=== PATIENT | female | born 1965 | race Caucasian/White ===

== ENCOUNTER → 2018-02-03 12:33 | Outpatient (CLI) | payer OTHER, SELFPAY ==
--- NOTE | 2018-02-03 12:37 | BI_ITS ---
MAMMOGRAPHY - BILATERAL SCREENING 3-D COSMO SYNTHESIS REASON FOR EXAM: Female, 52 years old. Bilateral Screening 3-D tomosynthesis PERTINENT HISTORY: No significant family history. TECHNIQUE: 2-D mammograms and 3-D Cosmo synthesis of the breast (s) were performed. CAD was performed. COMPARISON: January 28, 2017 FINDINGS: The breast composition is almost entirely fat. There are stable lymph nodes in both axillae. Scattered benign calcifications are seen. No dense spiculated masses or suspicious microcalcifications are identified. No architectural distortion is identified. There is no skin thickening or retraction. There has been no significant change since the prior study. BI/SCREENING MAMM (CAD), BILAT IMPRESSION: No mammographic signs of malignancy. Routine yearly mammograms recommended. ASSESSMENT CATEGORY: BIRADS Category 2: Benign. A letter regarding these results will be sent to the patient by the facility within 30 days. FOLLOW UP RECOMMENDATION: Yearly follow up mammogram recommended. (A) Approximately 10% of breast cancers are not detected by mammography. A normal mammogram should not delay biopsy of a clinically suspicious abnormality. Electronically Signed: Fernando Fontaine MD at 10:49 EST , Service support ,
== END ==
PROVIDERS: Family Provider Internal Medicine; PCP Internal Medicine; Visit Provider Nurse Practitioner Women's Health
DX: Z12.31 Encounter for screening mammogram for malignant neoplasm of breast (principal)
CPT/HCPCS: 77063; 77067

== ENCOUNTER → 2018-02-14 14:58 | Outpatient (CLI) | payer OTHER, SELFPAY ==
[2018-02-03 13:28] VITALS: BMI 27.6
[2018-02-14 16:32] LABS: Free T3 2.4 pg/mL (2.18-3.98); T4 Free Direct 0.97 ng/dL (0.76-1.46); Thyroid Stim Hormone (TSH) 0.93 uIU/mL (0.358-3.74)
== END ==
PROVIDERS: Family Provider Internal Medicine; PCP Internal Medicine; Referring Provider Nurse Practitioner; Visit Provider Nurse Practitioner
DX: E07.9 Disorder of thyroid, unspecified (principal)
CPT/HCPCS: 36415; 84439; 84443; 84481

== ENCOUNTER → 2018-02-21 14:44 | Outpatient (CLI) | payer OTHER, SELFPAY ==
[2018-02-21 13:55] VITALS: BMI 27.6
[2018-02-21 16:19] LABS: Vitamin B12 537 pg/mL (211-911)
[2018-02-24 09:52] LABS: Anti-Thyroglobulin AB < 1.0 IU/mL (0.0-0.9); Thyroglobulin, Serum Qt. < 0.1 ng/mL (1.5-38.5)
== END ==
PROVIDERS: Family Provider Internal Medicine; PCP Internal Medicine; Referring Provider Nurse Practitioner; Visit Provider Nurse Practitioner
DX: R53.81 Other malaise (principal); R53.82 Chronic fatigue, unspecified; Z85.850 Personal history of malignant neoplasm of thyroid
CPT/HCPCS: 36415; 82607; 84432; 86800

== ENCOUNTER → 2018-02-28 08:51 | Outpatient (CLI) | payer OTHER, SELFPAY ==
[2018-02-21 13:55] VITALS: BMI 27.6
--- NOTE | 2018-02-28 08:54 | US_ITS ---
HISTORY: Dysphagia HX OF THYROID CA AND BILAT THYROIDECTOMY 2010 DIFFICULTY SWALLOWING TECHNIQUE: Granados scale and color doppler imaging was performed of the thyroid gland. COMPARISON: 07/29/2016 FINDINGS: Bilateral thyroidectomy. The right thyroid bed shows a stable oval hypoechoic focus which is circumscribed and measures 7 x 6 x 8 mm. Diagnostic considerations would include a residual cyst, postsurgical lymphocele or seroma, or possibly parathyroid nodule. The pattern is stable. No new lesion. US/Thyroid IMPRESSION: 1. Bilateral thyroidectomy. No new lesion. 2. The right thyroid bed shows a stable cyst like structure. Please see above comment. at 0540 Reported and signed by: Johnny Leroy MD Electronically Signed: Johnny Leroy, at 5:38 EST Tel , Service support ,
--- OUTSIDE RECORDS SUMMARY | 2018-05-02 15:58 | XMS RPT_ITS ---
:1965 Author Organization OHIP Support Name Relationship Address Phone [facility] Unavailable [address] + [place] [address] MACY, ABIMAEL Unavailable [address] [facility] [address] [address] + [place] [address] MACY, KARLO Unavailable Unavailable + [place] [address] [facility] Unavailable [address] + [place] [address] MACY, ABIMAEL Unavailable [address] [facility] [address] [address] + [place] [address] MACY, KARLO Unavailable Unavailable + [place] [address] [facility] Unavailable [address] + [place] [address] MACY, ABIMAEL Unavailable [address] [facility] [address] [address] + [place] [address] MACY, KARLO Unavailable . + [place] [address] [facility] Unavailable [address] + [place] [address] MACY, ABIMAEL Unavailable [address] [facility] [address] [address] + [place] [address] MACY, KARLO Unavailable Unavailable + [place] [address] [facility] Unavailable [address] + [place] [address] MACY, ABIMAEL Unavailable [address] [facility] [address] + [place] [address] MACY, KARLO Unavailable [facility] + [place] [address] [facility] Unavailable [address] + [place] [address] MACY ABIMAEL Unavailable [address] [facility] [address] + [place] [address] KARLO TRUONG Unavailable [address] + [place] [address] [facility] Unavailable [address] + [place] [address] MACY ABIMAEL Unavailable [address] [facility] [address] + [place] [address] KARLO TRUONG Unavailable [address] + [place] [address] Care Team Providers Name Role Phone INDIA ROCK Attending Unavailable TALAMPAS, INDIA D Attending Unavailable TALAMPAS, INDIA D Referring Unavailable VANN FRANTZ Admitting Unavailable FRANTZ VANN Attending Unavailable TALAMPAS, INDIA D Referring Unavailable Cheri, Milton Attending Unavailable Talampas, India Primary Care Unavailable CheriMilton Attending Unavailable Talampas, India Referring Unavailable Shook, Tanesha Saldivar EMAIL MARKETING ASSISTANT-C Attending Unavailable Shook, Tanesha Saldivar EMAIL MARKETING ASSISTANT-C Referring Unavailable Talampas, India Primary Care Unavailable Shook, Tanesha Saldivar EMAIL MARKETING ASSISTANT-C Attending Unavailable Talampas, India Referring Unavailable Shook, Tanesha Saldivar EMAIL MARKETING ASSISTANT-C Attending Unavailable Shook, Tanesha Saldivar EMAIL MARKETING ASSISTANT-C Referring Unavailable Talampas, India Primary Care Unavailable Shook, Tanesha Saldivar EMAIL MARKETING ASSISTANT-C Attending Unavailable Shook, Tanesha Saldivar EMAIL MARKETING ASSISTANT-C Referring Unavailable Talampas, India Primary Care Unavailable Cheri, Milton Attending Unavailable Talampas, India Referring Unavailable Talampas, India Primary Care Unavailable PROBLEMS PROBLEMS DATE TYPE CONDITION / CODE ATTENDING STATUS SOURCE 03/03/2018 Unknown Z85.850 - Personal Tanesha Teixeira Active [place] history of malignant EMAIL MARKETING ASSISTANT-C Community neoplasm of thyroid Hospital / Z85.850(ICD-10) Repository 02/21/2018 Unknown R53.82 - Chronic Tanesha Teixeira Active [facility] fatigue, unspecified EMAIL MARKETING ASSISTANT-C Community / R53.82(ICD-10) Hospital Repository 02/21/2018 Unknown R53.81 - Other Tnaesha Teixeira Active [facility] malaise / EMAIL MARKETING ASSISTANT-C Community R53.81(ICD-10) Hospital Repository 01/03/2018 Active Encounter for VANN, Active [place] screening for FRANT[facility] Main malignant neoplasm [place] of colon / Repository Z12.11(ICD-10) 07/19/2013 Active Personal history of NA Active [place] malignant neoplasm Clinic Main of thyroid / [place] Z85.850(ICD-10) Repository 07/25/2012 Active Vitamin D NA Active [place] deficiency, Clinic Main unspecified / [place] E55.9(ICD-10) Repository 05/18/2012 Active Postprocedural NA Active [place] hypothyroidism / Clinic Main E89.0(ICD-10) [place] Repository 10/23/2017 Active Chronic fatigue, NA Active [place] unspecified / Clinic Main R53.82(ICD-10) [place] Repository 01/27/2017 Unknown Z12.11 - Encounter [place] Alonzo Active [facility] for screening for [facility] malignant neoplasm Hospital of colon / Repository Z12.11(ICD-10) 01/27/2017 Unknown Z01.419 - Encounter Milton Alonzo Active [facility] for gynecological [facility] examination [facility] (general) (routine) Repository without abnormal findings / Z01.419(ICD-10) 01/27/2017 Unknown Z12.4 - Encounter Milton Alonzo Active [place] for screening for [facility] malignant neoplasm Hospital of cervix / Repository Z12.4(ICD-10) PROCEDURES PROCEDURES No Procedure Records FoundRESULTS RESULTS THYROID Observed: 02/28/2018 Status: F Source: [place] 8:54 AM [facility] REPOSITORY [facility] Imaging Services [address] [place] [address] Thyroid MR#: [id number] Acct: [id number] Name: NICHOLE TRUONG Rep #: [id number] : 1965 F 52 From: Johnny Leroy MD PCP: India Rock MD Status: REG CLI Study: Thyroid Date of Exam: 02/28/18 Exam# [id number] Ordering Dr: Tanesha Teixeira EMAIL MARKETING ASSISTANT-C HISTORY: Dysphagia HX OF THYROID CA AND BILAT THYROIDECTOMY 2010 DIFFICULTY SWALLOWING TECHNIQUE: Granados scale and color doppler imaging was performed of the thyroid gland. COMPARISON: 07/29/2016 FINDINGS: Bilateral thyroidectomy. The right thyroid bed shows a stable oval hypoechoic focus which is circumscribed and measures 7 x 6 x 8 mm. Diagnostic considerations would include a residual cyst, postsurgical lymphocele or seroma, or possibly parathyroid nodule. The pattern is stable. No new lesion. US/Thyroid IMPRESSION: 1. Bilateral thyroidectomy. No new lesion. 2. The right thyroid bed shows a stable cyst like structure. Please see above comment. at 0540 Reported and signed by: Johnny Leroy MD Electronically Signed: Johnny Leroy, at 5:38 EST Tel , Service support , CC: Tanesha Teixeira NP; India Rock MD Lime Slaker: Signed OFFICE VISIT REPORT Observed: 02/22/2018 Status: F Source: [place] 8:[address] [place] [address] OFFICE VISIT Date of Service: 02/21/18 MR#: [id number] Acct: [id number] Patient: NICHOLE TRUONG Rep #: [id number] : 1965 Provider: Tanesha Teixeira NP Age/Sex: 52/F Location: [facility] Status: Signed Intake Vital Signs02/21/18 Body Mass Index (BMI) 27.6 Intake Visit Reasons: Thyroid dysfunction Chemistry 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 Required: No Accompanied by: Self Allergies erythromycin base Allergy (Intermediate, Verified 02/21/18 13:51) hives Medications estradiol 0.01% (0.1 mg/gram) vaginal cream See Rx Instructions VAGINAL .COMPLEX #42.5 g 02/03/18 [Rx Confirmed 02/21/18] levothyroxine 100 mcg tablet 100 mcg PO QDAY #90 tab 02/21/18 [Rx Confirmed 02/21/18] PFSH Medical History Anxiety (Acute) History of thyroid cancer (Acute) thyroid removed (Acute) Family History Father Diabetes Mother Hypertension Social History Smoking Status: Never smoker alcohol intake: current details: social substance use type: does not use caffeine: Yes frequency: 1-2 times per week duration: < 15 minutes/day seatbelt use: always do you feel safe at home: Yes additional social history: Lee HPI HPI Details: NICHOLE TRUONG, is a 52 F who presents to the office today for follow up of hypothyroidism. Hx of thyroid cancer [id number]. Had ALAMO after total thyroidectomy. Seen here one year ago as new patient. Scan was done as well as labs. Due to enlarged lymph nodes she was sent to ENT for further evaluation. She was told no treatment of the nodes was needed. Patient reports overall feeling healthy with good appetite, No CP or SOB. No edema. Feels tired as she feels her sleep is continuously affected by hot flashes. At time of visit: -Pt denies symptoms of hypertensive emergency (CP,SOB,HO, or blurred vision) and hypotension(dizziness or lightheadedness) -Pt denies symptoms of hypoglycemia ( sweaty, confusion, anxiety, tremor, hunger, palpitations) and hyperglycemia ( polydipsia, polyuria) -Pt denies potential medication adverse effect. Taking thyroid medication as directed. Dose is synthyroid 100 mcg daily. Severity, modifying factors, context, and associated signs and symptoms are as follows: Thyroid pain: No Energy: good Sleep: Not awakened refreshed Temp: Heat intolerance GI: Normal bowel Weight: Flucuates Eyes: No change in vision Memory: unchanged Diaphoresis: At night Skin: Dry Hair : Unchanged Neuro: No numbness, tingling or tremors ROS Const Constitutional: Positive for fatigue and night sweats; no anorexia, body ache, chills, fever(s), frequent falls, decreased energy, malaise, weakness, weight change, sleep problems, abnormal sleep pattern, change in appetite, other, headache(s), snoring or excessive sweating Eyes Eyes: Positive for change in vision; no blurry vision, double vision, discharge, dry eyes, bulging eyes, floaters, visual disturbances, eye pain, light sensitivity, spots in vision, tunnel vision or other ENT ENT: Positive for dizziness/vertigo, sinus pressure and sinus pain; no abnormal hearing, ear pain, ear discharge, ear pressure, hearing loss, tinnitus, balance problems, nosebleed/epistaxis, nasal congestion, nasal obstruction, nose pain, nasal discharge, post nasal drip, headache(s), facial pain, dental pain, dry mouth, bad breath, hoarseness, lip swelling, mouth lesions, mouth pain, sore throat, tongue swelling, throat swelling, other, difficulty swallowing or neck pain Resp Respiratory: No cough, change in phlegm color, chest congestion, excessive phlegm production, hemoptysis, pain on inspiration, shortness of breath, pain with cough, snoring, stridor, wheezing or other Cardio Cardiology: Positive for lightheadedness; no chest pain at rest, chest pain with exertion, leg pain with exertion, excessive sweating, shortness of breath, dyspnea on exertion, generalized swelling, irregular heart rhythm, orthopnea, radiating jaw, neck or arm pain, fast heart rate, slow heart rate, palpitations or other Gastro GI: No abdominal pain, belching, bloating, change in bowel habits, change in stool character, coffee ground emesis, constipation, cramping, diarrhea, heartburn, difficulty swallowing, feeling full early, excessive flatus, incontinent of stools, Vomiting blood/hematemesis, blood in stool, loose stools, Black,tarry stools, nausea/dyspepsia, pain with swallowing, vomiting or other Genitourinary-Female: No difficulty urinating, burning urination, painful urination, urinary incontinence, urinary frequency, urinary urgency, urinary hesitancy, urinary retention, blood in urine, Frequent nighttime urination/ nocturia, post void dribbling, suprapubic fullness, side pain, sexual problems, genital lesions, genital itching, hot flashes, abnormal periods, abnormal vaginal bleeding, absent period, painful periods, light periods, heavy periods, difficulty getting , painful intercourse, pelvic pain, vaginal dryness, vaginal odor, Vaginal Itching or other Musc Musculoskeletal: No abnormal walking, joint pain, back pain, deformity, joint swelling, limited range of motion, loss of height, muscle cramps, muscle weakness, decreased muscle mass, body aches, neck pain, numbness, radiating pain into limb, stiffness, tingling or other Skin Skin: No acne, hair loss, change in hair, nail changes, boil, change in skin color, dry skin, redness, excessive hair growth, yellowing of the skin, lesions, itching, rash, skin pain, skin ulcer, sores, skin swelling, wounds or other Breast Breast: No other Neuro Neurology: No frequent falls, weakness, visual disturbances, abnormal hearing, headache(s), abnormal walking, numbness or tingling Psych Psychiatric: No abnormal sleep pattern, No change in appetite Endo Endocrine: Positive for fatigue; no other or excessive sweating Aller/Imm Allergy/Immunologic: No lip swelling, tongue swelling, throat swelling, wheezing or itchy eyes Exam Const General: comfortable, no acute distress Nutritional Appearance: well nourished Orientation: oriented x3 HENMT Head: normal to inspection, atraumatic Ears: hearing grossly normal bilaterally Nose: external nose normal Face and sinus: normal facial exam Mouth: oral mucosae normal, moist mucous membranes Teeth and gingiva: dentition normal Eyes General: appearance normal, both eyes and all related structures Periorbital: periorbital findings normal Eyelids: eyelids normal Conjunctivae: conjunctivae normal Neck Neck: normal visual inspection Thyroid: other (total thyroidectomy) Resp Effort AND Inspection: normal respiratory effort, able to speak in complete sentences, symmetric chest movement Auscultation: Bilateral: Clear to Auscultation Cardio Rate: regular rate Rhythm: regular rhythm Heart Sounds: S1 normal, S2 normal GI Inspection: normal to inspection Auscultation: normal bowel sounds Palpation: guarding Musc Musculoskeletal: No muscle weakness Skin General: dry skin, no rashes or lesions noted Neuro General: oriented x3, moves all extremities Cognition: normal cognition Speech: speech normal Gait: normal gait Extrem General: normal to inspection, normal capillary refill Psych Appearance: grossly normal Mental Status: mental status grossly normal Mood: congruent mood Affect: normal affect Speech and Movement: speech and movement normal Attitude: cooperative Thought Process: normal Thought Content: normal Judgment: judgment good Assessment AND Plan 1. 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 TSH 0.93 Free T4 0.97 Free T3 2.4 Thyroglobulin not done so it is ordered today Thyroid US to be done. Patient Instructions Continue current regimen Us as ordered. RTC 1 year. Plan Detail Other Orders Orders: Other Medications Refilled: Additional Comments 1. Please schedule follow up in 12 months. 2. Lab work one week before appointment. 3. Discussed importance of regular exercise and recommend starting or continuing a regular exercise program for good health. 4. The patient was encouraged to lose weight for good health Spent approximately 30 minutes with patient with over 50% of time spent in discussion and counseling regarding medication adjustment, symptoms and treatment of hypothyroidism . Coding Level of Care Code Off vis,est,level 3 Diagnoses Hypothyroidism associated with surgical procedure E89.0 02/22/18 0845 <Electronically signed by Tanesha LEVY> Date Tanesha LEVY Cosigner Signature: Date (if applicable) CC: VITAMIN B12 Collected: 02/21/2018 Status: F Source: [place] 2:50 PM [facility] REPOSITORY TYPE CODE TESTS RESULT OUT OF RANGE REFERENCE UNITS LAB L503.0105 211-911 pg/mL Normal Vitamin B12 537 Performed By: #### L503.0105 #### [facility] [address] [place], [address] THYROGLOBULIN W/ANTI-TG Collected: 02/21/2018 Status: F Source: [place] AB 2:50 PM [facility] REPOSITORY Order Comment: Reason for Laboratory Test hx of thyroid cancer. TYPE CODE TESTS RESULT OUT OF RANGE REFERENCE UNITS LAB [id number] 0.0-0.9 IU/mL Normal ANTI-TG < 1.0 AB Result Comment: Thyroglobulin Antibody measured by [facility] [id number] 1.5-38.5 ng/mL Low THYROGLOB < 0.1 Result Comment: According to the National Academy of Clinical Biochemistry, the reference interval for Thyroglobulin (TG) should be related to euthyroid patients and not for patients who underwent thyroidectomy. TG reference intervals for these patients depend on the residual mass of the thyroid tissue left after surgery. Establishing a post-operative baseline is recommended. The assay limit of quantitation is 0.1 ng/mL Thyroglobulin measured by [facility] Performed at: - [facility] [address] [id number] Oval Or Circular Glass Cutter: Phil Salazar PhD, Phone: [phone] Performed By: #### L3300.6820 #### [facility] (refer to report for specific site) refer to report for address and phone number FREE T3 Collected: 02/14/2018 Status: F Source: [place] 3:12 PM [facility] REPOSITORY TYPE CODE TESTS RESULT OUT OF RANGE REFERENCE UNITS LAB [id number] 2.18-3.98 pg/mL Normal FREE T3 2.4 Performed By: #### L501.62555, L501.9520, L506.0400 #### [facility] [address] [place], [address] THYROID STIM HORMONE Collected: 02/14/2018 Status: F Source: [place] (TSH) 3:12 PM [facility] REPOSITORY TYPE CODE TESTS RESULT OUT OF RANGE REFERENCE UNITS LAB L501.9520 0.358-3.74 uIU/mL Normal TSH 0.93 Performed By: #### L501.86294, L501.9520, L506.0400 #### [facility] [address] [place], [address] T4 FREE DIRECT Collected: 02/14/2018 Status: F Source: [place] 3:12 PM [facility] REPOSITORY TYPE CODE TESTS RESULT OUT OF RANGE REFERENCE UNITS LAB L506.0400 0.76-1.46 ng/dL Normal T4 FREE 0.97 DIRECT Performed By: #### L501.92394, L501.9520, L506.0400 #### [facility] [address] [place], [address] PROGRESS Observed: 02/14/2018 Status: COMPLETED Source: [place] 2:42 PM [facility] [place] REPOSITORY HNO ID: [id number] Author: Julieta Whelan Service: (none) Author Type: Physician Carton Lettering Machine Operator Type: Progress Notes Filed: 02/15/2018 7:33 AM Note Text: 02/14/2018 Patient presents with: bilateral ear pain: off and on x 2 weeks SUBJECTIVE: This is a 52 year old that is here today for Complaint(s) of FERMIN ear plugged x 2 weeks. + post nasal drainage. Also notes some vertigo like symptoms with sudden changes in head movement. Has had this previously-consistent with previous sx. Does have a wood stove. 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 Cartagena; treated with radioactive iodine ALLERGIES Prednisone; Emycin [Erythromycin]; Wellbutrin [Bupropion] MEDICATIONS Current Outpatient Prescriptions: cyclobenzaprine (FLEXERIL) 10 mg tablet Take 0.5-1 tablets by mouth at bedtime as needed for Muscle Spasm. fluticasone (FLONASE) 50 mcg/actuation nasal spray Use 2 Sprays in each nostril once daily. Rinse mouth after use. cetirizine (ZYRTEC) 10 mg tablet Take 1 tablet by mouth once daily. levothyroxine (SYNTHROID) 100 mcg tablet Take 1 tablet by mouth daily before breakfast. Only 1/2 pill on Sundays. PARoxetine (PAXIL) 20 mg tablet Take 1 tablet by mouth once daily. As directed (Patient not taking: Reported on 02/14/2018 ) No current facility-administered medications for this visit. SOCIAL HISTORY Social History Marital status: Spouse name: LEE Years of education: 12+ Number of children: 2 Occupational History Occupation Employer Comment [employer] Social History Main Topics Smoking status: Never Smoker Smokeless tobacco: Never Used Alcohol use: Yes Comment: RARE Drug use: No Sexual activity: Yes Partners with: Male control/protection: Vasectomy Comment: WITH VASECTOMY REVIEW OF SYSTEMS See HPI OBJECTIVE: BP 124/70 Pulse 67 Temp 36.4 ?C (97.5 ?F) (Tympanic) Resp 18 Wt 81.1 kg (178 lb 12.8 oz) LMP 11/03/2010 SpO2 99% BMI 27.90 kg/m? APPEARANCE Well appearing, alert, in no acute distress, well-hydrated, well nourished. EYES PERRLA, conjunctiva and sclera normal. EARS External ears normal, canals clear. Small effusion TMs FERMIN. Normal landmarks. No erythema. NOSE/SINUS Nares normal. Septum midline. Mucosa normal. No drainage or sinus tenderness. THROAT normal, no erythema NECK Supple, no adenopathy; HEART RRR with normal S1 and S2, LUNG clear to auscultation NEURO AANDO x 3. CN II-XII grossly intact. ASSESSMENT/PLAN: 1. Dizziness - ICD9: 780.4, ICD10: R42 (primary diagnosis) Possible labyrinthitis Reviewed red flags and when to seek care sooner in ER F/u in 2-3 days with ENT if persisting, sooner if any worsening sx - MECLIZINE 25 MG TABLET 2. Dysfunction of both eustachian tubes - ICD9: 381.81, ICD10: H69.83 Flonase, sudafed Reviewed red flags and when to seek care sooner. The patient indicates understanding of these issues and agrees with the plan. Julieta Whelan PA-C CNOV Observed: 02/14/2018 Status: COMPLETED Source: [place] 2:30 PM [facility] REPOSITORY Office Visit (WSTR) NICHOLE TRUONG ([id number]) 1965 F Date Time Provider Department 02/14/18 2:30 PM JULIETA WHELAN) WSTR During your visit today, we recorded the following information about you: Temperature Pulse Respiration Blood pressure 97.5 degrees 67/minute 18/minute 124/70 Weight 81.1 kg Julieta Whelan PA-C 02/15/2018 7:33 AM Signed 02/14/2018 Patient presents with: bilateral ear pain: off and on x 2 weeks SUBJECTIVE: This is a 52 year old that is here today for Complaint(s) of FERMIN ear plugged x 2 weeks. + post nasal drainage. Also notes some vertigo like symptoms with sudden changes in head movement. Has had this previously-consistent with previous sx. Does have a wood stove. 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 Cartagena; treated with radioactive iodine ALLERGIES Prednisone; Emycin [Erythromycin]; Wellbutrin [Bupropion] MEDICATIONS Current Outpatient Prescriptions: cyclobenzaprine (FLEXERIL) 10 mg tablet Take 0.5-1 tablets by mouth at bedtime as needed for Muscle Spasm. fluticasone (FLONASE) 50 mcg/actuation nasal spray Use 2 Sprays in each nostril once daily. Rinse mouth after use. cetirizine (ZYRTEC) 10 mg tablet Take 1 tablet by mouth once daily. levothyroxine (SYNTHROID) 100 mcg tablet Take 1 tablet by mouth daily before breakfast. Only 1/2 pill on Sundays. PARoxetine (PAXIL) 20 mg tablet Take 1 tablet by mouth once daily. As directed (Patient not taking: Reported on 02/14/2018 ) No current facility-administered medications for this visit. SOCIAL HISTORY Social History Marital status: Spouse name: LEE Years of education: 12+ Number of children: 2 Occupational History Occupation Employer Comment [employer]* Social History Main Topics Smoking status: Never Smoker Smokeless tobacco: Never Used Alcohol use: Yes Comment: RARE Drug use: No Sexual activity: Yes Partners with: Male control/protection: Vasectomy Comment: WITH VASECTOMY REVIEW OF SYSTEMS See HPI OBJECTIVE: BP 124/70 Pulse 67 Temp 36.4 ?C (97.5 ?F) (Tympanic) Resp 18 Wt 81.1 kg (178 lb 12.8 oz) LMP 11/03/2010 SpO2 99% BMI 27.90 kg/m? APPEARANCE Well appearing, alert, in no acute distress, well- hydrated, well nourished. EYES PERRLA, conjunctiva and sclera normal. EARS External ears normal, canals clear. Small effusion TMs FERMIN. Normal landmarks. No erythema. NOSE/SINUS Nares normal. Septum midline. Mucosa normal. No drainage or sinus tenderness. THROAT normal, no erythema NECK Supple, no adenopathy; HEART RRR with normal S1 and S2, LUNG clear to auscultation NEURO AANDO x 3. CN II-XII grossly intact. ASSESSMENT/PLAN: 1. Dizziness - ICD9: 780.4, ICD10: R42 (primary diagnosis) Possible labyrinthitis Reviewed red flags and when to seek care sooner in ER F/u in 2-3 days with ENT if persisting, sooner if any worsening sx - MECLIZINE 25 MG TABLET 2. Dysfunction of both eustachian tubes - ICD9: 381.81, ICD10: H69.83 amadeo Laraaamir Reviewed red flags and when to seek care sooner. The patient indicates understanding of these issues and agrees with the plan. Julieta Whelan PA-C Referring Provider: SELF [200] Allergies As of Date: 02/14/2018 Noted Allergy Reaction PREDNISONE 07/25/2012 4 - Hives 9 - Itching EMYCIN (ERYTHROMYCIN) 08/14/2005 WELLBUTRIN (BUPROPION) 01/08/2014 14 - Other: See Comments Comments: felt mean on it; better off Date Reviewed: 02/14/2018 Reviewed by: Yani Mittal LPN - Fully Assessed Reason for Visit: bilateral ear pain [Other] Cmt: off and on x 2 weeks Primary Visit Diagnosis:Dizziness [R42] Other Visit Diagnosis:Dysfunction of both eustachian tubes [H69.83] Order(s):meclizine (ANTIVERT) 25 mg tabTake 1 tablet by mouth three times daily.Disp: 12 tabletRfl: 0 Prescriptions as of 02/14/2018 Sig: CYCLOBENZAPRINE 10 MG TABLET Take 0.5-1 tablets by mouth a* FLUTICASONE 50 MCG/ACTUATION * Use 2 Sprays in each nostril * CETIRIZINE 10 MG TABLET Take 1 tablet by mouth once d* LEVOTHYROXINE 100 MCG TABLET Take 1 tablet by mouth daily * MECLIZINE 25 MG TABLET Take 1 tablet by mouth three * PAROXETINE 20 MG TABLET Take 1 tablet by mouth once d* Patient not taking: Reported on 02/14/2018 Problem List As Of Date 02/14/2018 Noted Resolved Anxiety [F41.9] INVALID FOR* More... Insomnia [G47.00] INVALID FOR* Abdominal Pain, Right Upper Quadrant [R10.11] INVALID FOR*07/25/2012 Malignant neoplasm of thyroid gland [C73] INVALID FOR*05/02/2010 History of thyroid cancer [Z85.850] INVALID FOR* More... 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 [address] [place] [address] OFFICE VISIT Date of Service: 02/03/18 MR#: [id number] Acct: [id number] Name: NICHOLE TRUONG Rep #: [id number] : 1965 Provider: GEORGETTE Alonzo Age/Sex: 52/F Location: [facility] [place] Status: Signed Intake Vital Signs02/03/18 Height 5 ft 7 in 02/03/18 Weight: 176 lb 02/03/18 Body Mass Index (BMI) 27.6 Intake Visit Reasons: ANNUAL Chief Complaint: Annual Accompanied by: Self Is patient in pain?: No Allergies erythromycin base Allergy (Intermediate, Verified 02/03/18 13:29) hives Medications duloxetine 20 mg capsule,delayed release See Rx Instructions PO BID 01/27/17 [History Confirmed 02/03/18] levothyroxine 100 mcg tablet 100 mcg PO QDAY #90 tab 08/17/17 [Rx Confirmed 02/03/18] estradiol 0.01% (0.1 mg/gram) vaginal cream See Rx Instructions VAGINAL .COMPLEX #42.5 g 02/03/18 [Rx Confirmed 02/03/18] Is last menstrual period known: No Post menopausal: Yes Patient : No : No PFSH Medical History Anxiety (Acute) History of thyroid cancer (Acute) thyroid removed (Acute) Family History Father Diabetes Mother Hypertension Social History Smoking Status: Never smoker alcohol intake: current details: social substance use type: does not use caffeine: Yes frequency: 1-2 times per week duration: < 15 minutes/day seatbelt use: always do you feel safe at home: Yes additional social history: Lee Pregancy History 2 Elective abortions Hx Para 2 Spontaneous abortions Past Pregnancies Del. DatName GA/WeeksOutcome Route [facility] LocaProviderFOB e ht en tn Unknown 1988 Jus tin Unknown 1990 Lory carlos HPI ANNUAL: Details: NICHOLE TRUONG is a 52 year old who presents for annual exam. NO concerns Last PAP: 2017 History of abnormal PAP: no Last mammogram: today, pending History of abnormal mammogram: no Colon cancer screenin Female Reproductive History Questions: Metorrhagia: No, Sexually active: Yes, Dyspareunia: No, PCB: No ROS Const Constitutional: Denies fatigue, weight gain or weight loss Cardio Card: Denies chest pain Resp Resp: Denies cough or shortness of breath with activity GI GI: Denies abdominal pain, constipation, change in stools, vomiting or bloating : Reports as per HPI; denies urinary frequency, pelvic pain, urinary urgency, vaginal discharge, vaginal itching, urinary incontinence or difficulty urinating Exam Const General: cooperative, healthy appearing, no acute distress, well developed Orientation: alert, oriented to person, oriented to place HENMT Head: normal to inspection Neck Neck: normal visual inspection Thyroid: thyroid normal Lymphatic: no lymphadenopathy noted Chest Breast inspection: normal inspection of the breasts, normal inspection of the axillae Breast palpation: normal palpation of the breasts, normal palpation of the axillae, no axillary lymphadenopathy Resp Effort AND Inspection: normal respiratory effort GI Palpation: soft, nontender, no masses Rectal Exam: deferred External Female Exam: normal external appearance, normal appearance of the urethra Urethra: normal appearance of the urethra, normal palpation Speculum Exam - Vagina: normal vaginal discharge, atrophic vaginal mucosa Speculum Exam - Cervix: normal appearance of the cervix Bimanual Exam- Vagina AND Uterus: normal bimanual exam, uterine size normal, uterine shape normal, uterus non-tender Bimanual Exam- Adnexa, other: normal adnexae, no adnexal masses, adnexae non-tender, pelvic support normal Pelvic Support: normal Neuro General: alert, oriented x3 Psych Affect: normal affect Assessment AND Plan Problems 1. Encounter for gynecological examination with abnormal finding Z01.411 2. Atrophic vaginitis N95.2 Plan Completed breast and pelvic exam Reviewed diet and exercise Pap 2017 Mammogram today Contraception NA Rx estrace cream. Reviewed use of coconut oil Colonoscopy recent Bone density NA RTO 1 year, prn with problems Milton Alonzo TSA SCREENER Medications New: estradiol 0.01%(0.1mg/gram) (Estrace) pea sized amount VAGINAL every other day X 4 weeks t hen twice a week; 42.5 grams 2RF Coding Level of Care Code Off vis,est,prev 40-64yrs Diagnoses Encounter for gynecological examination with abnormal finding Z01.411 Gynecological examination findings: abnormal findings PRESENT Atrophic vaginitis N95.2 02/03/18 1353 <Electronically signed by Milton LEVY> Date Milton LEVY Cosigner Signature: Date (if applicable) CC: SCREENING MAMM (CAD), Observed: 02/03/2018 Status: F Source: [facility] 12:37 PM [facility] REPOSIT[facility] Imaging Services [address] [place] [id number] SCREENING MAMM (CAD), BILAT MR#: [id number] Acct: [id number] Name: NICOHLE TRUONG Rep #: [id number] : 1965 F 52 From: Fernando Fontaine MD PCP: India Rock MD Status: [facility] CL Study: SCREENING MAMM (CAD), BILAT Date of Exam: 02/03/18 Exam# [id number] Ordering Dr: Milton Alonzo MAMMOGRAPHY - BILATERAL SCREENING 3-D HEMANT SYNTHESIS REASON FOR EXAM: Female, 52 years old. Bilateral Screening 3-D tomosynthesis PERTINENT HISTORY: No significant family history. TECHNIQUE: 2-D mammograms and 3-D Hemant synthesis of the breast (s) were performed. CAD was performed. COMPARISON: January 28, 2017 FINDINGS: The breast composition is almost entirely fat. There are stable lymph nodes in both axillae. Scattered benign calcifications are seen. No dense spiculated masses or suspicious microcalcifications are identified. No architectural distortion is identified. There is no skin thickening or retraction. There has been no significant change since the prior study. BI/SCREENING MAMM (CAD), BILAT IMPRESSION: No mammographic signs of malignancy. Routine yearly mammograms recommended. ASSESSMENT CATEGORY: BIRADS Category 2: Benign. A letter regarding these results will be sent to the patient by the facility within 30 days. FOLLOW UP RECOMMENDATION: Yearly follow up mammogram recommended. (A) Approximately 10% of breast cancers are not detected by mammography. A normal mammogram should not delay biopsy of a clinically suspicious abnormality. Electronically Signed: Fernando Fontaine MD at 10:49 EST , Service support , CC: GEORGETTE Alonzo; India Rock MD Lime Slaker: Signed NURSING PROG Observed: 01/03/2018 Status: COMPLETED Source: [place] 10:39 AM [facility] REPOSITORY HNO ID: [id number] Author: Jolanta Gill RN Service: (none) Author Type: Registered Nurse Type: Nursing Progress Note Filed: 01/03/2018 11:06 AM Note Text: Patient did not experience a fall prior to discharge. Patient did not experience a burn prior to discharge. Jolanta Gill RN NURSING PROG Observed: 01/03/2018 Status: COMPLETED Source: [place] 10:31 AM [facility] REPOSITORY HNO ID: [id number] Author: Jolanta Gill RN Service: (none) Author Type: Registered Nurse Type: Nursing Progress Note Filed: 01/03/2018 10:31 AM Note Text: Dr. Vann stopped and talked with pt and family member. Jolanta Gill RN NURSING PROG Observed: 01/03/2018 Status: COMPLETED Source: [place] 10:19 AM [facility] REPOSITORY HNO ID: [id number] Author: Jolanta Gill RN Service: (none) Author Type: Registered Nurse Type: Nursing Progress Note Filed: 01/03/2018 10:19 AM Note Text: Waiting for Dr. Vann. Jolanta Gill RN PT ED Observed: 01/03/2018 Status: COMPLETED Source: [place] 10:05 AM [facility] REPOSITORY HNO ID: [id number] Author: Jolanta Gill RN Service: (none) Author Type: Registered Nurse Type: Patient Education Filed: 01/03/2018 10:05 AM Note Text: POST OP LEARNING RESPONSE INSTRUCTION PROVIDED TO: Patient and Spouse METHOD OF INSTRUCTION: Individual instruction Written instruction - handouts Verbal instruction PATIENT / FAMILY RESPONSE: Verbalizes understanding of: MEDICAL REGIMEN-Importance of following prescribed medical regimen POST-PROCEDURE INSTRUCTIONS-Correct actions to take to reduce post procedure complications WORSENING CONDITION-Signs and symptoms of a worsening condition that warrant a call to the physician FOLLOW-UP PLAN: Patient instructed to call with any further issues Follow up phone call. Contact information given. SUPPLEMENTAL MATERIAL: Procedure discharge instructions REFERRAL (RECOMMENDATION): None Electronically Signed By: Jolanta Gill RN In Department: AMBULATORY SURGERY NURSING PROG Observed: 01/03/2018 Status: COMPLETED Source: [place] 10:04 AM [facility] REPOSITORY HNO ID: [id number] Author: Jolanta Gill RN Service: (none) Author Type: Registered Nurse Type: Nursing Progress Note Filed: 01/03/2018 10:04 AM Note Text: Pt sitting up in bed tolerating snack and drink. Denies pain or nausea. Abd soft and nondistended. No complaints. Jolanta Gill RN NURSING PROG Observed: 01/03/2018 Status: COMPLETED Source: [place] 9:45 AM [facility] REPOSITORY HNO ID: [id number] Author: Corine Serrano RN Service: Nursing Author Type: Registered Nurse Type: Nursing Progress Note Filed: 01/03/2018 9:45 AM Note Text: Patient did not experience a fall within the Intraoperative area. Patient did not experience a burn within the Intraoperative area. Corine Serrano RN BRIEF OP NOT Observed: 01/03/2018 Status: COMPLETED Source: [place] 9:43 AM [facility] REPOSITORY HNO ID: [id number] Author: Frantz Vann Service: Gastroenterology Author Type: Physician Type: Brief Op Note Filed: 01/03/2018 9:44 AM Note Text: BRIEF OPERATIVE NOTE PATIENT NAME: Nichole Truong LOG ID: [id number] Surgery Date: 01/03/2018 Surgeon(s) and Carton Lettering Machine Operator(s): Frantz Vann MD -Primary Procedure(s): Procedure(s) (LRB): COLONOSCOPY WITH BIOPSY (N/A) Anesthesia: Procedural Sedation Findings: Rectal polyp Estimated Blood Loss: Minimal Specimens: Rectal polyp Preop Diagnosis: Special screening for malignant neoplasms, colon [Z12.11] Postop Diagnosis: Special screening for malignant neoplasms, colon [Z12.11] SIGNATURE: Frantz Vann MD DATE: January 03, 2018 TIME: 9:43 AM NURSING PROG Observed: 01/03/2018 Status: COMPLETED Source: [place] 9:22 AM [facility] REPOSITORY HNO ID: [id number] Author: Jolanta (Rn) GAVIN iGll Service: (none) Author Type: Registered Nurse Type: Nursing Progress Note Filed: 01/03/2018 9:49 AM Note Text: [facility] PRE-OP NURSING HAND OFF NOTE SBAR Hand off given to Corine Serrano RN. Hand off was communicated verbally and at the patient's bedside and all questions were answered. FALLS/RIZO Patient did not experience a fall within the Preoperative area. Patient did not experience a burn within the Preoperative area. Jolanta Gill RN HISTORY PHYSICAL Observed: 01/03/2018 Status: COMPLETED Source: [place] 9:05 AM [facility] REPOSITORY HNO ID: [id number] Author: Frantz Vann Service: Gastroenterology Author Type: Physician Type: HANDP Filed: 01/03/2018 9:05 AM Note Text: PROCEDURAL SEDATION HISTORY AND PHYSICAL EXAM SERVICE DATE: 01/03/2018 SERVICE TIME: 9:05 AM Subjective HPI: This is a 52 year old female who presents with the need for screening colonoscopy PAST ANESTHESIA HISTORY: No history of adverse event PAST MEDICAL HISTORY Diagnosis Date - Anxiety state, unspecified - INSOMNIA NOS 02/14/2008 - LATERAL EPICONDYLITIS 03/19/2008 - Memory loss 08/07/2008 - Postsurgical hypothyroidism - Snoring - Thyroid cancer (HCC) 2010 papillary; resected by Dr. Cartagena; treated with radioactive iodine PAST SURGICAL HISTORY Procedure Laterality Date - ; THYROIDECTOMY TOTAL OR COMPLETE 2010 - PAST SURGICAL HISTORY OF 2001 LEFT KNEE ARTHROSCOPY Prior to Admission medications as of 01/03/18 0820 Medication Sig Last Dose Taking PARoxetine (PAXIL) 20 mg tablet Take 1 tablet by mouth once daily. As directed 01/02/2018 at Unknown time Yes levothyroxine (SYNTHROID) 100 mcg tablet Take 1 tablet by mouth daily before breakfast. Only 1/2 pill on Sundays. 01/03/2018 at 0715 Yes cyclobenzaprine (FLEXERIL) 10 mg tablet Take 0.5-1 tablets by mouth at bedtime as needed for Muscle Spasm. Unknown at Unknown time fluticasone (FLONASE) 50 mcg/actuation nasal spray Use 2 Sprays in each nostril once daily. Rinse mouth after use. Unknown at Unknown time cetirizine (ZYRTEC) 10 mg tablet Take 1 tablet by mouth once daily. Unknown at Unknown time ALLERGIES Allergen Reactions - Prednisone Hives, Itching - Emycin [Erythromyci* - Wellbutrin [Bupropi* Other: See Comments felt mean on it; better off Objective PHYSICAL EXAM: The remainder of the physical exam is noncontributory. AIRWAY: Airway Visualization of Uvula: Yes Mouth opening greater than 2 fingerbreadths: Yes Neck Full Range of Motion: Yes LUNGS: Lungs clear to auscultation, Good diaphragmatic excursion CARDIAC: Normal S1 and S2; no rubs, murmurs, or gallops Assessment/Plan ASA Class: ASA Class:: Patient with mild systemic disease Active Problems: * No active hospital problems. * Resolved Problems: * No resolved hospital problems. * Provisional Diagnosis/Treatment Plan: Screening/colonoscopy SEDATION GOAL: Moderate SIGNATURE: Frantz Vann MD PATIENT NAME: Nichole Truong DATE: January 03, 2018 TIME: 9:05 AM PAGER: PT ED Observed: 01/03/2018 Status: COMPLETED Source: [place] 8:22 AM [facility] [place] REPOSITORY HNO ID: [id number] Author: Jolanta LanceRn) GAVIN Gill Service: (none) Author Type: Registered Nurse Type: Patient Education Filed: 01/03/2018 8:22 AM Note Text: PRE OP LEARNING ASSESSMENT PROCEDURE/SURGERY: GI PROCEDURES: Colonoscopy READINESS TO LEARN COGNITIVE ABILITY: Alert and oriented MOTIVATION TO LEARN: Eager FAMILY SUPPORT: High - Very involved in pt care PATIENT LEARNS BEST BY: Multiple Methods FACTORS AFFECTING LEARNING: None PHYSICAL LIMITATIONS AFFECTING LEARNING: None Electronically Signed By: Jolanta Gill RN In Department: AMBULATORY SURGERY SURGICAL PATHOLOGY Observed: 01/03/2018 Status: F Source: [place] 12:00 AM [facility] REPOSITORY Specimen originated from [facility] Specimen #: [id number] Submitting Physician: FRANTZ VANN MD FINAL DIAGNOSIS Rectal polyp, biopsy - Hyperplastic polyp. JEL/pldoimnga 01/05/2018 Joe Kemp M.D. (Electronic Signature) SPECIMEN SUBMITTED A: RECTAL POLYP CLINICAL DATA COLD BX FORCEPS GROSS DESCRIPTION A. Received in formalin is one piece of garcias, soft tissue measuring 0.8 x 0.3 x 0.2 cm. Totally submitted in one cassette. Gross examination performed at [facility], [address] [place] [address] 01/04/2018 12:14:07 PM Date of Report: 01/05/2018 Date of Procedure: 01/03/2018 Date of Receipt: 01/03/2018 Submitted by: FRANTZ VANN MD Location: W010 Diagnostic interpretation performed at [facility], [address] [place] [address]. [employer]OTE SENSING SCIENTIST OFFICE VISIT Observed: 12/14/2017 Status: F Source: [facility] RE[facility] 10:24 AM [facility] REPOSITORY [facility] [address] [place] [address] OFFICE VISIT Date of Service: 01/27/17 MR#: [id number] Acct: [id number] Name: NICHOLE TRUONG Rep #: [id number] : 1965 Provider: GEORGETTE Alonzo Age/Sex: 51/F Location: [facility] [place] [place] Status: Signed with Addenda ADDENDUM by GEORGETTE Alonzo on 12/14/17 at 1024 Addendum entered and electronically signed by MILDRED Figueroa 12/14/17 10:24: Rectal exam was deferred. No masses palpated Assessment AND Plan 1. Encounter for routine gynecological examination Z01.419 Plan - MILDRED Figueroa Completed breast and pelvic exam Reviewed diet and exercise Pap collected Mammogram ordered Colonoscopy referral sent RTO 1 year, prn with problems Milton Alonzo TSA SCREENER 2. Pap smear for cervical cancer screening Z12.4 Plan - MILDRED Figueroa thin prep pap with HPV 3. Colon cancer screening Z12.11 Plan - MILDRED Figueroa Referral to Dr. 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 DatName GA/WeeksOutcome Route [facility] Mark Parikh LgAnestheFabian LocaProviderFOB e ht en ia tn Unknown 1988 Jus tin Unknown 1990 Lory carlos PFSH Medical History Anxiety (Acute) History of thyroid cancer (Acute) thyroid removed (Acute) Family History Father Diabetes Mother Hypertension Social History Smoking Status: Never smoker alcohol intake: current details: social substance use type: does not use caffeine: Yes frequency: 1-2 times per week duration: < 15 minutes/day seatbelt use: always do you feel safe at home: Yes additional social history: Lee [facility] Encounter for routine gynecological examination: Details: NICHOLE TRUONG is a 51 year old who presents for annual exam. Last PAP: 2011 History of abnormal PAP: no Last mammogram: 01/2016 History of abnormal mammogram: no Colon cancer screening: encouraged ROS Const Constitutional: Denies fatigue, weight gain or weight loss Cardio Card: Denies chest pain Resp Resp: Denies cough or shortness of breath with activity GI GI: Denies abdominal pain, constipation, change in stools, vomiting or bloating : Reports as per HPI; denies urinary frequency, pelvic pain, urinary urgency, vaginal discharge, vaginal itching, urinary incontinence or difficulty urinating Exam Const General: cooperative, healthy appearing, no acute distress, well developed Orientation: alert, oriented to person, oriented to place HENMT Head: normal to inspection Neck Neck: normal visual inspection Thyroid: thyroid normal Lymphatic: no lymphadenopathy noted Chest Breast inspection: normal inspection of the breasts, normal inspection of the axillae Breast palpation: normal palpation of the breasts, normal palpation of the axillae, no axillary lymphadenopathy Resp Effort AND Inspection: normal respiratory effort Auscultation: clear to auscultation bilaterally Cardio Rate: regular rate Rhythm: regular rhythm GI Palpation: soft, nontender, no masses Rectal Exam: mass, deferred External Female Exam: normal external appearance, normal appearance of the urethra Urethra: normal appearance of the urethra, normal palpation Speculum Exam - Vagina: normal appearance of the vagina, normal vaginal discharge Speculum Exam - Cervix: normal appearance of the cervix, other (thin prep pap and HPV collected) Bimanual Exam- Vagina AND Uterus: normal bimanual exam, uterine size normal, uterine shape normal, uterus non-tender Bimanual Exam- Adnexa, other: normal adnexae, no adnexal masses, adnexae non-tender, pelvic support normal Pelvic Support: normal Neuro General: alert, oriented x3 Psych Affect: normal affect Assessment AND Plan 1. Encounter for routine gynecological examination Z01.419 Plan Completed breast and pelvic exam Reviewed diet and exercise Pap collected Mammogram ordered Colonoscopy referral sent RTO 1 year, prn with problems Milton Cheri TSA SCREENER 2. Pap smear for cervical cancer screening Z12.4 Plan thin prep pap with HPV 3. Colon cancer screening Z12.[address] Cartagena Orders Referrals: 01/27/17 1526 <Electronically signed by Milton LEVY> Date Milton LEVY Cosigner Signature: Date (if applicable) CC: CBC Collected: 10/23/2017 Status: F Source: [place] 8:14 AM [facility] REPOSITORY TYPE CODE TESTS RESULT OUT OF REFERENCE UNITS RANGE LAB WBC 3.70-11.00 k/uL WBC 4.21 LAB RBC 3.90-5.20 m/uL RBC 4.29 LAB HGB 11.5-15.5 g/dL Hemoglobin 13.1 LAB HCT 36.0-46.0 % Hematocrit 39.3 LAB MCV 80.0-100.0 fL MCV 91.6 LAB MCH 26.0-34.0 pG MCH 30.5 LAB MCHC 30.5-36.0 g/dL MCHC 33.3 LAB RDWCV 11.5-15.0 % RDW-CV 12.1 LAB PLTCT 150-400 k/uL Platelet Count 317 LAB MPV 9.0-12.7 fL MPV 10.6 LAB ABSNUC <0.01 k/uL Absolute nRBC <0.01 Performed By: #### CBC, CMP, FT4, TSH, VITD, TG #### [facility] [address] [place] [address] COMP METABOLIC PANEL Collected: 10/23/2017 Status: F Source: [place] 8:14 AM [facility] REPOSITORY TYPE CODE TESTS RESULT OUT OF REFERENCE UNITS RANGE LAB TP 6.3-8.0 g/dL Protein, Total 7.2 LAB ALB 3.9-4.9 g/dL Albumin 4.3 LAB CA 8.5-10.2 mg/dL Calcium, Total 9.4 LAB TBIL 0.2-1.3 mg/dL Bilirubin, Total 0.4 LAB ALKP 32-117 U/L Alkaline Phosphatase 50 LAB AST 13-35 U/L AST 18 LAB GLU 74-99 mg/dL Glucose 89 Result Comment: The [place] [employer] (ADA) provides guidance for cutoff values for fasting glucose and random glucose. The ADA defines fasting as no caloric intake for at least 8 hours. Fas ting plasma glucose results between 100 to 125 mg/dL indicate increased risk for diabetes (prediabetes). Fasting plasma glucose results greater than or equal to 126 mg/dL meet the criteria for diagnosis of diabetes. In the absence of unequivocal hyperglycemia, results should be confirmed by repeat testing. In a patient with classic symptoms of hyperglycemia or hyperglycemic crisis, random plasma glucose results greater than or equal to 200 mg/dL meet the criteria for diagnosis of diabetes. Reference: Standards of Medical Care in Diabetes 2016, [place] [employer]. Diabetes Care. 2016.39(Suppl 1). LAB BUN 7-21 mg/dL BUN 16 LAB CRET 0.58-0.96 mg/dL Creatinine 0.82 LAB NA 136-144 mmol/L Sodium 143 LAB K 3.7-5.1 mmol/L Potassium 4.5 LAB CL 97-105 mmol/L Chloride 104 LAB CO2 22-30 mmol/L CO2 28 LAB AGAP 9-18 mmol/L Anion Gap 11 LAB ALT 7-38 U/L ALT 17 LAB GFRAA eGFR- Amer. >60 LAB GFRNAA . eGFR-All Other Races >60 Result Comment: eGFR (Estimated GFR) Units of measure: mL/min/1.73 meters squared eGFR is derived from the reexpressed MDRD Study equation using the following parameters: serum creatinine, age, gender and race. The creatinine assay has been calibrated to be traceable to IDMS. An eGFR <60 mL/min/1.73m2 for >3 months is consistent with chronic kidney disease. Refer to KDOQI guidelines for clinical interpretation. In patients with unstable renal function, e.g. those with acute kidney injury, the eGFR may not accurately reflect actual GFR. Performed By: #### CBC, CMP, FT4, TSH, VITD, TG #### [facility] [address] [place], [place] [address] FREE T4 Collected: 10/23/2017 Status: F Source: [place] 8:14 AM [facility] REPOSITORY TYPE CODE TESTS RESULT OUT OF RANGE REFERENCE UNITS LAB FT4 0.9-1.7 ng/dL Free T4 1.4 Performed By: #### CBC, CMP, FT4, TSH, VITD, TG #### [facility] [address], [place] [address] TSH Collected: 10/23/2017 Status: F Source: ENIGMA 8:14 AM [facility] REPOSITORY TYPE CODE TESTS RESULT OUT OF RANGE REFERENCE UNITS LAB TSH 0.400-5.500 uU/mL TSH 1.630 Performed By: #### CBC, CMP, FT4, TSH, VITD, TG #### [place] [address] VITAMIN D 25 HYDROXY Collected: 10/23/2017 Status: F Source: ENIGMA 8:14 AM [facility] REPOSITORY TYPE CODE TESTS RESULT OUT OF REFERENCE UNITS RANGE LAB VITD 31.0-80.0 ng/mL Vitamin D 25 39.9 Hydroxy Result Comment: Classification of 25 [place] Vitamin D status: Insufficiency/Moderate Deficiency: < or = 30 ng/mL Sufficiency/Optimal Levels: 31 to 80 ng/mL Toxicity: > 100 ng/mL Test performed by chemiluminescent immunoassay. Performed By: #### CBC, CMP, FT4, TSH, VITD, TG #### [address] [address] THYROGLOBULIN Collected: 10/23/2017 Status: F Source: ENIGMA 8:14 AM [facility] REPOSITORY TYPE CODE TESTS RESULT OUT OF REFERENCE UNITS RANGE LAB THYG 1.6-59.9 ng/mL Thyroglobulin Low <0.2 Result Comment: Test analyzed by the Siemens Immulite method LAB TGABS <14.4 IU/mL TG Antibody Screen <1.0 Performed By: #### CBC, CMP, FT4, TSH, VITD, TG #### [place] [address] [place], [place] [address] PROGRESS Observed: 10/22/2017 Status: COMPLETED Source: ENIGMA 3:52 PM [facility] REPOSITORY HNO ID: [id number] Author: Richa Church Psr Service: (none) Author Type: (none) Type: Progress Notes Filed: 11/01/2017 12:41 AM Note Text: Patient scheduled for open access colonoscopy on 02/09/[address] Harrison. Mailing instructions. Richa Church Psr HOSP Observed: 10/22/2017 Status: COMPLETED Source: ENIGMA 12:00 AM [facility] REPOSITORY Patient:Nichole Truong MRN: <[id number]> Height:5' 7.126(1.705 m) Weight:No patient weight recorded within the last 30 days. 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] Allergies: Prednisone Emycin [Erythromycin] Wellbutrin [Bupropion] Date Verified: 01/03/18 Lab Values No results within the last 30 days for the following basenames: K,HCT No progress notes entered within the past 30 days PROGRESS Observed: 10/21/2017 Status: COMPLETED Source: ENIGMA 11:27 AM [facility] REPOSITORY HNO ID: [id number] Author: Mohini Bardales Service: (none) Author Type: (none) Type: Progress Notes Filed: 11/01/2017 12:41 AM Note Text: 1st failed attempt to contact patient, left voice message Mohini Bardales PROGRESS Observed: 10/20/2017 Status: COMPLETED Source: ENIGMA 4:33 PM [facility] REPOSITORY HNO ID: [id number] Author: India Rock Service: (none) Author Type: Physician Type: Progress Notes Filed: 11/01/2017 12:41 AM Note Text: Patient presents with: 6 mo f/up SUBJECTIVE: Nichole Truong is a 52 year old year old lady here today for 6 month follow up appointment for review of medical conditions. Will see BJ soon for follow up on thyroid issues (hypothyroidism s/p thyroid cancer surgery and radioactive iodine ablation). Clinically euthyroid. Overall doing well. 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 Should be better once starts back to full 5 day weeks after Labor Day and Fair day weeks. Anxiety under fair control. Due for colonoscopy for colon cancer screening. PAST MEDICAL HISTORY Diagnosis Date - Anxiety state, unspecified - INSOMNIA NOS 02/14/2008 - LATERAL EPICONDYLITIS 03/19/2008 - Memory loss 08/07/2008 - Postsurgical hypothyroidism - Thyroid cancer (HCC) 2010 papillary; resected by Dr. Cartagena; treated with radioactive iodine Current Outpatient Prescriptions: PARoxetine (PAXIL) 20 mg tablet Take 1 tablet by mouth once daily. As directed PARoxetine (PAXIL) 20 mg tablet Take 1 tablet by mouth once daily. As directed cyclobenzaprine (FLEXERIL) 10 mg tablet Take 0.5-1 tablets by mouth at bedtime as needed for Muscle Spasm. fluticasone (FLONASE) 50 mcg/actuation nasal spray Use 2 Sprays in each nostril once daily. Rinse mouth after use. cetirizine (ZYRTEC) 10 mg tablet Take 1 tablet by mouth once daily. levothyroxine (SYNTHROID) 100 mcg tablet Take 1 tablet by mouth daily before breakfast. Only 1/2 pill on Sundays. No current facility-administered medications for this visit. OBJECTIVE: BP 116/82 (BP Site: Right Arm, BP Position: Sitting, BP Cuff Size: Regular Adult) Pulse 60 Resp 12 Wt 80.7 kg (178 lb) LMP 11/03/2010 BMI 27.77 kg/m? Patient is alert, oriented times 3, no apparent distress, affect is bright, reactive. Last 5 Encounter BP Readings: Date: BP: 10/20/2017 116/82 04/27/2017 128/80 04/16/2017 128/70 10/14/2016 124/80 04/13/2016 122/80 Last 5 Encounter Wt Readings: Date: Wt: 10/20/2017 80.7 kg (178 lb) 04/27/2017 78.9 kg (174 lb) 04/16/2017 79.4 kg (175 lb) 10/14/2016 78 kg (172 lb) 04/13/2016 78 kg (172 lb) Neck : no lymphadenopathy and no thyromegaly; no masses Heart: Regular rate, rhythm, no murmurs, gallops, rubs. Lungs: Clear to auscultation, bilaterally, breathing non labored. Ext: No cyanosis, clubbing, or edema. ASSESSMENT AND PLAN: Encounter Diagnosis ICD-10-CM 1. Postsurgical hypothyroidism E89.0 TSH BLD T4 FREE/FREE THYROX 2. Vitamin D deficiency E55.9 VITAMIN D 25 HYDROXY 3. Chronic fatigue R53.82 COMP METABOLIC PANEL CBC 4. Anxiety F41.9 5. Special screening for malignant neoplasms, colon Z12.11 COLONOSCOPY SCRN NOT HIGH RISK 6. History of thyroid cancer Z85.850 THYROGLOBULIN BLD Above issues addressed with patient. Patient involved in shared decision making for management of her medical issues. History and medications reviewed. Epic updated as needed Refills taken care of and meds adjusted as indicated after reviewed history, exam and labs. Health Maintenance reviewed. Updated record and/or ordered tests as recorded. Encouraged on efforts at healthy diet and regular exercise and adequate sleep. Anxiety controlled with current med Paxil. Continue present management. Clinically euthyroid except some fatigue. TSH has been fine. Continue to adjust dose of replacement as indicated based on symptoms and labs. Continue follow up with JOHNIE Teixeiar for endo for thyroid history. Still with some chronic fatigue issues. Labs as above. Adjust meds as indicated. Updating labs as noted, including Vitamin D. Adjust dose as indicated. The majority of the visit was spent counseling and/or coordinating care for the patient. Ijns-iv-cdqw time was at least 15 minutes. India Rock MD PROGRESS Observed: 10/20/2017 Status: COMPLETED Source: ENIGMA 3:54 PM [facility] REPOSITORY O ID: [id number] Author: India Rock Service: (none) Author Type: Physician Type: Progress Notes Filed: 11/01/2017 12:41 AM Note Text: TR OPEN ACCESS QUESTIONNAIRE 1. Are you or could you be ? No 2. Are you currently having any stomach/gastrointestinal issues at this time such as constipation, diarrhea, abdominal pain, rectal bleeding etc? No 3. Do you have an implanted device such as a defibrillator, pacemaker, Cardiac Stent or deep brain stimulation device? No 4. Do you have any new or past cardiac (heart) or pulmonary (lung) issues? No 5. Is the patient's BMI 40 or greater? No:There is no height or weight on file to calculate BMI.. Last Wt 04/27/17 : 78.9 kg (174 lb) Last Ht 01/23/16 : 170.5 cm (5' 7.13) 6. Have you had difficulty with prior sedations or complications with other procedures? No 7. Have you had difficulty with anesthesia previously re: ? Difficult intubation? No ? Other difficulty or allergic reaction to anesthesia other than post op N/V? No 8. Do you currently use oxygen or a breathing machine at night? No 9. Do you take any narcotics, depression or anti-Anxiety medications or 3 or more prescription drugs on a daily basis? Yes / Paxil 10. Do you use any illegal or recreational drugs? No 11. Have you been hospitalized in the past 6 weeks? No 12. Are you on dialysis or have Chronic Kidney Disease? No 13. Have you been diagnosed with chronic liver disease such as hepatitis or cirrhosis? No 14. Do you have a seizure disorder? No 15. Do you have difficulty swallowing? No 16. Do you have ulcerative colitis or Crohn's disease? No 17. Do you take any Blood thinners, including Aspirin or fish oil? No 18. Do you have any blood disorders (re:hemophiliac)? No 19. Are you Diabetic? No 20. Any other important health information we should be made aware of prior to your colonoscopy? No 21. Any alcohol use: YES: What type of alcohol, how much and how often do you drink? : social To be completed by LIP: Patient appropriate for Open Access Colonoscopy: Yes: appropriate for Open Access Procedure Checklist: Prior to closing the encounter: ? Complete questionnaire: Yes ? Confirm Prep order has been Ordered/Pended: Yes. ? Patient's procedure could be delayed if not given the script for the prep. Please ensure the prep is escripted to pharmacy or printed. Instructions for the prep will print upon filing or pending this smartset. ? Please send all open access questionnaires to [facility] Sched Pool #[id number] CNOV Observed: 10/20/2017 Status: COMPLETED Source: ENIGMA 3:20 PM [facility] REPOSITORY Office Visit (INTMWS) MACYNICHOLE Devon ([id number]) 1965 F Date Time Provider Department 10/20/17 3:20 PM [place] INTMWS During your visit today, we recorded the following information about you: Pulse Respiration Blood pressure Weight 60/minute 12/minute 116/82 80.7 kg India Rock MD 11/01/2017 12:41 AM Signed [facility] OPEN ACCESS QUESTIONNAIRE 1. Are you or could you be ? No 2. Are you currently having any stomach/gastrointestinal issues at this time such as constipation, diarrhea, abdominal pain, rectal bleeding etc? No 3. Do you have an implanted device such as a defibrillator, pacemaker, Cardiac Stent or deep brain stimulation device? No 4. Do you have any new or past cardiac (heart) or pulmonary (lung) issues? No 5. Is the patient's BMI 40 or greater? No:There is no height or weight on file to calculate BMI.. Last Wt 04/27/17 : 78.9 kg (174 lb) Last Ht 01/23/16 : 170.5 cm (5' 7.13) 6. Have you had difficulty with prior sedations or complications with other procedures? No 7. Have you had difficulty with anesthesia previously re: ? Difficult intubation? No ? Other difficulty or allergic reaction to anesthesia other than post op N/V? No 8. Do you currently use oxygen or a breathing machine at night? No 9. Do you take any narcotics, depression or anti-Anxiety medications or 3 or more prescription drugs on a daily basis? Yes / Paxil 10. Do you use any illegal or recreational drugs? No 11. Have you been hospitalized in the past 6 weeks? No 12. Are you on dialysis or have Chronic Kidney Disease? No 13. Have you been diagnosed with chronic liver disease such as hepatitis or cirrhosis? No 14. Do you have a seizure disorder? No 15. Do you have difficulty swallowing? No 16. Do you have ulcerative colitis or Crohn's disease? No 17. Do you take any Blood thinners, including Aspirin or fish oil? No 18. Do you have any blood disorders (re:hemophiliac)? No 19. Are you Diabetic? No 20. Any other important health information we should be made aware of prior to your colonoscopy? No 21. Any alcohol use: YES: What type of alcohol, how much and how often do you drink? : social To be completed by LIP: Patient appropriate for Open Access Colonoscopy: Yes: appropriate for Open Access Procedure Checklist: Prior to closing the encounter: ? Complete questionnaire: Yes ? Confirm Prep order has been Ordered/Pended: Yes. ? Patient's procedure could be delayed if not given the script for the prep. Please ensure the prep is escripted to pharmacy or printed. Instructions for the prep will print upon filing or pending this smartset. ? Please send all open access questionnaires to [facility] Sched [place] #[id number] Abdirahman Crockettdevon 10/20/2017 4:01 PM Signed Health Information For Patients and the Community How to Prepare for Your Colonoscopy Using Golytely, Nulytely, Trilyte or Colyte Preparations IMPORTANT - Please Read These Instructions at Least 2 Weeks Before Your Colonoscopy [place] Instructions: ?Your bowel must be empty so that your doctor can clearly view your colon. Follow all of the instructions in this handout EXACTLY as they are written. If you do NOT follow the directions for when to start drinking the bowel preparation (see next page), your colonoscopy WILL be cancelled. ?Do NOT eat any solid food the ENTIRE day before your colonoscopy. ?Buy your bowel preparation at least 5 days before your colonoscopy. ?Do NOT mix the solution until the day before your colonoscopy. Designated Supervisor Varnish on the Day of Your Exam A responsible family member or friend MUST come with you to your colonoscopy and REMAIN in the endoscopy area until you are discharged! You are NOT ALLOWED to drive, take a taxi or bus, or leave the Endoscopy Center ALONE. If you do not have a responsible haul driver (family member or friend) with you to take you home, your exam cannot be done with sedation and will be cancelled. Medications Some of the medicines you take may need to be stopped or adjusted before your colonoscopy. You MUST call the doctor who ordered any of the following medicines at least 2 weeks before your colonoscopy. ?Blood thinners -- such as Coumadin? (warfarin), Plavix? (clopidogrel), Ticlid? (ticlopidine hydrochloride), Agrylin? (anagrelide), Xarelto? (Rivaroxaban), Pradaxa? (Dabigatran), Eliquis? (Apixaban), and Effient? (Prasugrel). ?Insulin or diabetes pills. Please call the doctor that monitors your glucose levels. Your insulin dosage may need to be adjusted due to the diet restrictions required with this bowel preparation. (Please bring your diabetes medicines with you on the day of your procedure.) If you take aspirin, take it and ALL other medications prescribed by your doctor. On the day of your colonoscopy, take your medications with a sip of water. Revised 03/2016 1 Five (5) Days Before Your Colonoscopy ?Do NOT take medicines that stop diarrhea -- such as Imodium?, Kaopectate?, or Pepto Bismol?. ?Do NOT take fiber supplements -- such as Metamucil?, Citrucel?, or Perdiem?. ?Do NOT take products that contain iron -- such as multi-vitamins -- (the label lists what is in the products). ?Do NOT take vitamin E. Buy the prescription bowel preparation solution at your local pharmacy or drugstore pharmacy. Three (3) Days Before Your Colonoscopy Do NOT eat high-fiber foods -- such as popcorn, beans, seeds (flax, sunflower, quinoa), multigrain bread, nuts, salad/vegetables, or fresh and dried fruit. One (1) Day Before Your Colonoscopy Only drink clear liquids the ENTIRE DAY before your colonoscopy. Do NOT eat any solid foods. Drink at least 8 ounces of clear liquids every hour after waking up. The clear liquids you can drink include: ?water, apple, or white grape juice; broth; coffee or tea (without milk or creamer); clear carbonated beverages such as emily nette or lemon-nikolski soda; Gatorade? or other sports drinks (not red); Chivo-Aid? or other flavored drinks (not red). You may eat plain jello or other gelatins (not red) or popsicles (not red). Do NOT drink alcohol on the day before or the day of the procedure. 2 Revised 03/2016 When to Mix and Drink Your Bowel Prep Follow the instructions on the label. After mixing, place the solution in the refrigerator for a couple of hours before drinking. You may add the flavor packet that came with the bowel preparation. DO NOT add ice, sugar or any flavorings to the solution. Evening Before Your Colonoscopy ?Start drinking the bowel preparation at 6 PM the evening before your colonoscopy. Drink an 8-oz glass of bowel preparation every 10 minutes. You must finish drinking the solution by 9 PM the night before your scheduled procedure. ?You may continue to drink clear liquids only until midnight. Do NOT eat or drink ANYTHING after midnight the night before your procedure or your procedure may be cancelled. This is for your safety and will reduce the risk of having any food or liquid in your stomach move into your lungs (aspiration) during a procedure. If you take aspirin, take it and ALL other prescribed medicines with a sip of water on the day of your colonoscopy. Contact Information: If you are unable to keep your appointment or have any questions about the instructions, please call the facility where the procedure is being performed. Call between the hours of 8:00 AM and 5:00 PM. If you are calling after 5:00 PM, please call Nurse leaf conditioner at [phone]. [facility] [address] [place] [id number] Index # [id number] Revised 03/2016 3 Colonoscopy Procedure Overview Please Read Prior to the Procedure What is a Colonoscopy A colonoscopy is an outpatient procedure in which the inside of the large intestine (colon and rectum) is examined. A colonoscopy is commonly used to evaluate gastrointestinal symptoms, such as rectal and intestinal bleeding, abdominal pain, or changes in bowel habits. Colonoscopies are also performed in individuals without symptoms to check for colorectal polyps or cancer. A screening colonoscopy is recommended for anyone 50 years of age and older, and for anyone with parents, siblings or children with a history of colorectal cancer or polyps. What Happens Before a Colonoscopy To have a successful colonoscopy, your bowel must be empty so that your physician can clearly view the colon. To do this, it is very important to read and follow all of the instructions given to you at least 2 weeks BEFORE your exam. If your bowel is not empty, your colonoscopy will not be successful and may have to be repeated. If you feel nauseated or vomit while taking the bowel preparation, wait 30 minutes before drinking more fluid and start with small sips of solution. Some activity (such as walking) or a few soda crackers may help decrease the nausea you are feeling. If the nausea persists, please contact nurse telegraph office telephone clerk at [phone]. You may experience skin irritation around the anus due to the passage of liquid stools. To prevent and treat skin irritation, you should: ?Apply Vaseline? or Desitin? ointment to the skin around the anus before drinking the bowel preparation medications. These products can be purchased at any drugstore. ?Wipe the skin after each bowel movement with disposable wet wipes instead of toilet paper. These are found in the toilet paper area of the store. ?Sit in a bathtub filled with warm water for 10 to 15 minutes after you finish passing a stool; after soaking, blot the skin dry with a soft cloth, apply Vaseline? or Desitin? ointment to the anal area, and place a cotton ball just outside your anus to absorb leaking fluid. What Happens During a Colonoscopy During a colonoscopy, an experienced physician uses a colonoscope (a long, flexible instrument about 1/2 inch in diameter) to view the lining of the colon. The colonoscope is inserted into the rectum and advanced through the large intestine. If necessary during a colonoscopy, small amounts of tissue can be removed for analysis (a biopsy) and polyps can be identified and entirely removed. In many cases, a colonoscopy allows accurate diagnosis and treatment of colorectal problems without the need for a major operation. Revised 03/2016 5 ?You are asked to wear a hospital gown and an IV will be started. ?You are given a pain reliever and a sedative intravenously (in your vein). You will feel relaxed and somewhat drowsy. ?You will lie on your left side, with your knees drawn up towards your chest. ?A small amount of air is used to expand the colon so the physician can see the colon rock[place]. ?You may feel mild cramping during the procedure. Cramping can be reduced by taking slow, deep breaths. ?The colonoscope is slowly withdrawn while the lining of your bowel is carefully examined. ?The procedure lasts from 30 minutes to 1 hour. What Happens After a Colonoscopy ?You will stay in a recovery room for observation until you are ready for discharge. ?You may feel some cramping or a sensation of having gas, but this quickly passes. ?If sedation has been given, a responsible family member or friend must drive you home. ?Avoid alcohol, driving, and operating machinery for 24 hours following the procedure. ?Unless otherwise instructed, you may immediately return to your normal diet. We recommend you wait until the day after your procedure to resume normal activities. ?If polyps were removed or a biopsy was taken, the physician performing your colonoscopy will tell you when it is safe to resume taking your blood thinners. ?If a biopsy was taken or a polyp was removed, you may notice a little amount of rectal bleeding for 1 to 2 days after the procedure. If you have a large amount of rectal bleeding, high or persistent fevers, or severe abdominal pain within the next 2 weeks, please go to your local emergency room and call the physician who performed your exam. 6 Revised 03/2016 ?Copyright 2570-3385 [facility]. All rights reserved. Revised 03/2016 India Rock MD 11/01/2017 12:41 AM Signed Patient presents with: 6 mo f/up SUBJECTIVE: Nichole Truong is a 52 year old year old lady here today for 6 month follow up appointment for review of medical conditions. Will see BJ soon for follow up on thyroid issues (hypothyroidism s/p thyroid cancer surgery and radioactive iodine ablation). Clinically euthyroid. Overall doing well. 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 Should be better once starts back to full 5 day weeks after Labor Day and Fair day weeks. Anxiety under fair control. Due for colonoscopy for colon cancer screening. PAST MEDICAL HISTORY Diagnosis Date - Anxiety state, unspecified - INSOMNIA NOS 02/14/2008 - LATERAL EPICONDYLITIS 03/19/2008 - Memory loss 08/07/2008 - Postsurgical hypothyroidism - Thyroid cancer (HCC) 2010 papillary; resected by Dr. Cartagena; treated with radioactive iodine Current Outpatient Prescriptions: PARoxetine (PAXIL) 20 mg tablet Take 1 tablet by mouth once daily. As directed PARoxetine (PAXIL) 20 mg tablet Take 1 tablet by mouth once daily. As directed cyclobenzaprine (FLEXERIL) 10 mg tablet Take 0.5-1 tablets by mouth at bedtime as needed for Muscle Spasm. fluticasone (FLONASE) 50 mcg/actuation nasal spray Use 2 Sprays in each nostril once daily. Rinse mouth after use. cetirizine (ZYRTEC) 10 mg tablet Take 1 tablet by mouth once daily. levothyroxine (SYNTHROID) 100 mcg tablet Take 1 tablet by mouth daily before breakfast. Only 1/2 pill on Sundays. No current facility-administered medications for this visit. OBJECTIVE: BP 116/82 (BP Site: Right Arm, BP Position: Sitting, BP Cuff Size: Regular Adult) Pulse 60 Resp 12 Wt 80.7 kg (178 lb) LMP 11/03/2010 BMI 27.77 kg/m? Patient is alert, oriented times 3, no apparent distress, affect is bright, reactive. Last 5 Encounter BP Readings: Date: BP: 10/20/2017 116/82 04/27/2017 128/80 04/16/2017 128/70 10/14/2016 124/80 04/13/2016 122/80 Last 5 Encounter Wt Readings: Date: Wt: 10/20/2017 80.7 kg (178 lb) 04/27/2017 78.9 kg (174 lb) 04/16/2017 79.4 kg (175 lb) 10/14/2016 78 kg (172 lb) 04/13/2016 78 kg (172 lb) Neck : no lymphadenopathy and no thyromegaly; no masses Heart: Regular rate, rhythm, no murmurs, gallops, rubs. Lungs: Clear to auscultation, bilaterally, breathing non labored. Ext: No cyanosis, clubbing, or edema. ASSESSMENT AND PLAN: Encounter Diagnosis ICD-10-CM 1. Postsurgical hypothyroidism E89.0 TSH BLD T4 FREE/FREE THYROX 2. Vitamin D deficiency E55.9 VITAMIN D 25 HYDROXY 3. Chronic fatigue R53.82 COMP METABOLIC PANEL CBC 4. Anxiety F41.9 5. Special screening for malignant neoplasms, colon Z12.11 COLONOSCOPY SCRN NOT HIGH RISK 6. History of thyroid cancer Z85.850 THYROGLOBULIN BLD Above issues addressed with patient. Patient involved in shared decision making for management of her medical issues. History and medications reviewed. Epic updated as needed Refills taken care of and meds adjusted as indicated after reviewed history, exam and labs. Health Maintenance reviewed. Updated record and/or ordered tests as recorded. Encouraged on efforts at healthy diet and regular exercise and adequate sleep. Anxiety controlled with current med Paxil. Continue present management. Clinically euthyroid except some fatigue. TSH has been fine. Continue to adjust dose of replacement as indicated based on symptoms and labs. Continue follow up with JOHNIE Teixeira for endo for thyroid history. Still with some chronic fatigue issues. Labs as above. Adjust meds as indicated. Updating labs as noted, including Vitamin D. Adjust dose as indicated. The majority of the visit was spent counseling and/or coordinating care for the patient. [id number] time was at least 15 minutes. MD Mohini Rodríguez 11/01/2017 12:41 AM Signed 1st failed attempt to contact patient, left voice message Mohini Church Psr 11/01/2017 12:41 AM Signed Patient scheduled for open access colonoscopy on 02/09/[address] Harrison. Mailing instructions. Richa Church Psr Referring Provider: SELF [[id number]] Allergies As of Date: 10/20/2017 Noted Allergy Reaction PREDNISONE 07/25/2012 4 - Hives 9 - Itching EMYCIN (ERYTHROMYCIN) 08/14/2005 WELLBUTRIN (BUPROPION) 01/08/2014 14 - Other: See Comments Comments: felt mean on it; better off Date Reviewed: 10/20/2017 Reviewed by: Abdirahman Tesfaye - Fully Assessed Reason for Visit: 6 mo f/up [Other] Primary Visit Diagnosis:Postsurgical hypothyroidism [E89.0] Other Visit Diagnoses:Vitamin D deficiency [E55.9] Chronic fatigue [R53.82] Anxiety [F41.9] Special screening for malignant neoplasms, colon [Z12.11] History of thyroid cancer [Z85.850] Order(s):[] peg 3350-electrolytes (COLYTE) 240-22.72-6.72 -5.84 gram solutionTake 4,000 mL by mouth one time only for 1 dose.Disp: 4000 mLRfl: 0 COLONOSCOPY SCRN NOT HIGH RISK [[id number]] Order #: [id number] FUTURE TSH BLD [SQTSH] Order #: [id number] FUTURE T4 FREE/FREE THYROX [SQFT4] Order #: [id number] FUTURE THYROGLOBULIN BLD [SQTG] Order #: [id number] FUTURE VITAMIN D 25 HYDROXY [SQVITD] Order #: [id number] FUTURE COMP METABOLIC PANEL [SQCMP] Order #: [id number] FUTURE CBC [SQCBC] Order #: [id number] FUTURE Prescriptions as of 10/20/2017 Sig: PAROXETINE 20 MG TABLET Take 1 tablet by mouth once d* CYCLOBENZAPRINE 10 MG TABLET Take 0.5-1 tablets by mouth a* FLUTICASONE 50 MCG/ACTUATION * Use 2 Sprays in each nostril * CETIRIZINE 10 MG TABLET Take 1 tablet by mouth once d* LEVOTHYROXINE 100 MCG TABLET Take 1 tablet by mouth daily * PEG 3350 240 GRAM-ELECTROLYTE* Take 4,000 mL by mouth one ti* Medication notes this encounter LEVOTHYROXINE 100 MCG TABLET >> Abdirahman Tesfaye 10/20/2017 3:49 PM >> ABDIRAHMAN TESFAYE WedOct 20, 2017 3:49 PM Per JOHNIE Teixeira. PAROXETINE 20 MG TABLET >> Abdirahman Tesfaye 10/20/2017 3:48 PM >> ABDIRAHMAN TESFAYE WedOct 20, 2017 3:48 PM duplicate Problem List As Of Date 10/20/2017 Noted Resolved Anxiety [F41.9] INVALID FOR* More... Insomnia [G47.00] INVALID FOR* Abdominal Pain, Right Upper Quadrant [R10.11] INVALID FOR*07/25/2012 Malignant neoplasm of thyroid gland [C73] INVALID FOR*05/02/2010 History of thyroid cancer [Z85.850] INVALID FOR* More... 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 Follow all of the instructions in this handout EXACTLY as they are written. If you do NOT follow the directions for when to start drinking the bowel preparation (see next page), your colonoscopy WILL be cancelled. ?Do NOT eat any solid food the ENTIRE day before your colonoscopy. ?Buy your bowel preparation at least 5 days before your colonoscopy. ?Do NOT mix the solution until the day before your colonoscopy. Designated Supervisor Varnish on the Day of Your Exam A responsible family member or friend MUST come with you to your colonoscopy and REMAIN in the endoscopy area until you are discharged! You are NOT ALLOWED to drive, take a taxi or bus, or leave the Endoscopy Center ALONE. If you do not have a responsible haul driver (family member or friend) with you to take you home, your exam cannot be done with sedation and will be cancelled. Medications Some of the medicines you take may need to be stopped or adjusted before your colonoscopy. You MUST call the doctor who ordered any of the following medicines at least 2 weeks before your colonoscopy. ?Blood thinners -- such as Coumadin? (warfarin), Plavix? (clopidogrel), Ticlid? (ticlopidine hydrochloride), Agrylin? (anagrelide), Xarelto? (Rivaroxaban), Pradaxa? (Dabigatran), Eliquis? (Apixaban), and Effient? (Prasugrel). ?Insulin or diabetes pills. Please call the doctor that monitors your glucose levels. Your insulin dosage may need to be adjusted due to the diet restrictions required with this bowel preparation. (Please bring your diabetes medicines with you on the day of your procedure.) If you take aspirin, take it and ALL other medications prescribed by your doctor. On the day of your colonoscopy, take your medications with a sip of water. Revised 03/2016 1 Five (5) Days Before Your Colonoscopy ?Do NOT take medicines that stop diarrhea -- such as Imodium?, Kaopectate?, or Pepto Bismol?. ?Do NOT take fiber supplements -- such as Metamucil?, Citrucel?, or Perdiem?. ?Do NOT take products that contain iron -- such as multi- vitamins -- (the label lists what is in the products). ?Do NOT take vitamin E. Buy the prescription bowel preparation solution at your local pharmacy or drugstore pharmacy. Three (3) Days Before Your Colonoscopy Do NOT eat high-fiber foods -- such as popcorn, beans, seeds (flax, sunflower, quinoa), multigrain bread, nuts, salad/vegetables, or fresh and dried fruit. One (1) Day Before Your Colonoscopy Only drink clear liquids the ENTIRE DAY before your colonoscopy. Do NOT eat any solid foods. Drink at least 8 ounces of clear liquids every hour after waking up. The clear liquids you can drink include: ?water, apple, or white grape juice; broth; coffee or tea (without milk or creamer); clear carbonated beverages such as emily nette or lemon-nikolski soda; Gatorade? or other sports drinks (not red); Chivo-Aid? or other flavored drinks (not red). You may eat plain jello or other gelatins (not red) or popsicles (not red). Do NOT drink alcohol on the day before or the day of the procedure. 2 Revised 03/2016 When to Mix and Drink Your Bowel Prep Follow the instructions on the label. After mixing, place the solution in the refrigerator for a couple of hours before drinking. You may add the flavor packet that came with the bowel preparation. DO NOT add ice, sugar or any flavorings to the solution. Evening Before Your Colonoscopy ?Start drinking the bowel preparation at 6 PM the evening before your colonoscopy. Drink an 8-oz glass of bowel preparation every 10 minutes. You must finish drinking the solution by 9 PM the night before your scheduled procedure. ?You may continue to drink clear liquids only until midnight. Do NOT eat or drink ANYTHING after midnight the night before your procedure or your procedure may be cancelled. This is for your safety and will reduce the risk of having any food or liquid in your stomach move into your lungs (aspiration) during a procedure. If you take aspirin, take it and ALL other prescribed medicines with a sip of water on the day of your colonoscopy. Contact Information: If you are unable to keep your appointment or have any questions about the instructions, please call the facility where the procedure is being performed. Call between the hours of 8:00 AM and 5:00 PM. If you are calling after 5:00 PM, please call Nurse leaf conditioner at [phone]. [facility] [address] [place] [address] Index # [id number] Revised 03/2016 3 Colonoscopy Procedure Overview Please Read Prior to the Procedure What is a Colonoscopy A colonoscopy is an outpatient procedure in which the inside of the large intestine (colon and rectum) is examined. A colonoscopy is commonly used to evaluate gastrointestinal symptoms, such as rectal and intestinal bleeding, abdominal pain, or changes in bowel habits. Colonoscopies are also performed in individuals without symptoms to check for colorectal polyps or cancer. A screening colonoscopy is recommended for anyone 50 years of age and older, and for anyone with parents, siblings or children with a history of colorectal cancer or polyps. What Happens Before a Colonoscopy To have a successful colonoscopy, your bowel must be empty so that your physician can clearly view the colon. To do this, it is very important to read and follow all of the instructions given to you at least 2 weeks BEFORE your exam. If your bowel is not empty, your colonoscopy will not be successful and may have to be repeated. If you feel nauseated or vomit while taking the bowel preparation, wait 30 minutes before drinking more fluid and start with small sips of solution. Some activity (such as walking) or a few soda crackers may help decrease the nausea you are feeling. If the nausea persists, please contact nurse telegraph office telephone clerk at [phone]. You may experience skin irritation around the anus due to the passage of liquid stools. To prevent and treat skin irritation, you should: ?Apply Vaseline? or Desitin? ointment to the skin around the anus before drinking the bowel preparation medications. These products can be purchased at any drugstore. ?Wipe the skin after each bowel movement with disposable wet wipes instead of toilet paper. These are found in the toilet paper area of the store. ?Sit in a bathtub filled with warm water for 10 to 15 minutes after you finish passing a stool; after soaking, blot the skin dry with a soft cloth, apply Vaseline? or Desitin? ointment to the anal area, and place a cotton ball just outside your anus to absorb leaking fluid. What Happens During a Colonoscopy During a colonoscopy, an experienced physician uses a colonoscope (a long, flexible instrument about 1/2 inch in diameter) to view the lining of the colon. The colonoscope is inserted into the rectum and advanced through the large intestine. If necessary during a colonoscopy, small amounts of tissue can be removed for analysis (a biopsy) and polyps can be identified and entirely removed. In many cases, a colonoscopy allows accurate diagnosis and treatment of colorectal problems without the need for a major operation. Revised 03/2016 5 ?You are asked to wear a hospital gown and an IV will be started. ?You are given a pain reliever and a sedative intravenously (in your vein). You will feel relaxed and somewhat drowsy. ?You will lie on your left side, with your knees drawn up towards your chest. ?A small amount of air is used to expand the colon so the physician can see the colon rockwell. ?You may feel mild cramping during the procedure. Cramping can be reduced by taking slow, deep breaths. ?The colonoscope is slowly withdrawn while the lining of your bowel is carefully examined. ?The procedure lasts from 30 minutes to 1 hour. What Happens After a Colonoscopy ?You will stay in a recovery room for observation until you are ready for discharge. ?You may feel some cramping or a sensation of having gas, but this quickly passes. ?If sedation has been given, a responsible family member or friend must drive you home. ?Avoid alcohol, driving, and operating machinery for 24 hours following the procedure. ?Unless otherwise instructed, you may immediately return to your normal diet. We recommend you wait until the day after your procedure to resume normal activities. ?If polyps were removed or a biopsy was taken, the physician performing your colonoscopy will tell you when it is safe to resume taking your blood thinners. ?If a biopsy was taken or a polyp was removed, you may notice a little amount of rectal bleeding for 1 to 2 days after the procedure. If you have a large amount of rectal bleeding, high or persistent fevers, or severe abdominal pain within the next 2 weeks, please go to your local emergency room and call the physician who performed your exam. 6 Revised 03/2016 ?Copyright 0231-1553 [facility]. All rights reserved. Revised 03/2016 Prescriptions ordered this encounter Disp Refills Start End PEG 3350 240 GRAM-ELECTROLYTES 22.72* 4000* 0 10/20/2017 10/20/2017 Route: ORAL Sig: Take 4,000 mL by mouth one time only for 1 dose. Medications Discontinued During This Encounter PARoxetine (PAXIL) 20 mg tablet 30 t* 5 05/31/2017 10/20/2017 Route: ORAL Sig: Take 1 tablet by mouth once daily. As directed Disc: Reason for discontinue is not on file. Disposition: Return in about 6 months (around 04/19/2018) for 6 months follow up. Follow-up and Disposition History Recorded Encounter Status:Closed by [place]IA R[place] MD on 11/01/17 PROGRESS Observed: 04/27/2017 Status: COMPLETED Source: [place] 6:40 PM [facility] REPOSITORY HNO ID: [id number] Author: Talya (Rosemarie) CHARISSE Gilmore.ROSEMARIE Service: (none) Author Type: Nurse Practitioner Type: Progress Notes Filed: 04/27/2017 6:49 PM Note Text: Subjective HPI Nichole Truong is a 52 year old female who presents with a cough, sinus pain and congestion for the past 7 days. Today she started having pain in her sinuses. She has taken an OTC sinus pill at home. She also tried zyrtec at home without relief. Review of Systems HENT: Positive for congestion, ear pain and sinus pain. Negative for sore throat. Respiratory: Positive for cough and sputum production. Negative for shortness of breath. Cardiovascular: Negative. Negative for chest pain. Gastrointestinal: Positive for diarrhea (past 2 days). Negative for abdominal pain, nausea and vomiting. Skin: Negative. BP 128/80 Pulse 76 Temp 37.5 ?C (99.5 ?F) (Tympanic) Resp 16 Wt 78.9 kg (174 lb) LMP 11/03/2010 BMI 27.15 kg/m2 PAST MEDICAL HISTORY Diagnosis Date - Anxiety state, unspecified - INSOMNIA NOS 02/14/2008 - LATERAL EPICONDYLITIS 03/19/2008 - Memory loss 08/07/2008 - Postsurgical hypothyroidism - Thyroid cancer (HCC) 2010 papillary; resected by Dr. Cartagena; treated with radioactive iodine PAST SURGICAL HISTORY Procedure Laterality Date - ; THYROIDECTOMY TOTAL OR COMPLETE 2010 - PAST SURGICAL HISTORY OF 2001 LEFT KNEE ARTHROSCOPY ALLERGIES Prednisone; Emycin [Erythromycin]; Wellbutrin [Bupropion] MEDICATIONS cyclobenzaprine (FLEXERIL) 10 mg tablet Take 0.5-1 tablets by mouth at bedtime as needed for Muscle Spasm. PARoxetine (PAXIL) 20 mg tablet Take 1 tablet by mouth once daily. As directed fluticasone (FLONASE) 50 mcg/actuation nasal spray Use 2 Sprays in each nostril once daily. Rinse mouth after use. cetirizine (ZYRTEC) 10 mg tablet Take 1 tablet by mouth once daily. levothyroxine (SYNTHROID) 100 mcg tablet Take 1 tablet by mouth daily before breakfast. Only 1/2 pill on Sundays. FAMILY HISTORY Problem Relation Age of Onset - Hypertension Mother - Diabetes Father - Thyroid Sister HYPO - Thyroid Brother HYPO - Cancer Maternal Grandmother BLADDER - Diabetes Paternal Grandmother - goiter [OTHER] Other Maternal great grandmother Social History Substance Use Topics - Smoking status: Never Smoker - Smokeless tobacco: Never Used - Alcohol use Yes Comment: RARE Objective Physical Exam Constitutional: She is well-developed, well-nourished, and in no distress. HENT: Head: Normocephalic. Right Ear: Tympanic membrane, external ear and ear canal normal. Left Ear: Tympanic membrane, external ear and ear canal normal. Nose: Rhinorrhea and sinus tenderness present. Right sinus exhibits maxillary sinus tenderness and frontal sinus tenderness. Left sinus exhibits maxillary sinus tenderness and frontal sinus tenderness. Mouth/Throat: Uvula is midline, oropharynx is clear and moist and mucous membranes are normal. Mucous membranes are not pale and not dry. No posterior oropharyngeal edema or posterior oropharyngeal erythema. Eyes: Conjunctivae are normal. Right eye exhibits no discharge. Left eye exhibits no discharge. Neck: Neck supple. Cardiovascular: Normal rate, regular rhythm and normal heart sounds. Pulmonary/Chest: Effort normal and breath sounds normal. Lymphadenopathy: She has no cervical adenopathy. Neurological: She is alert. Skin: Skin is warm and dry. No rash noted. Nursing note and vitals reviewed. ASSESSMENT/PLAN: 1. Acute rhinosinusitis - ICD9: 461.9, ICD10: J01.90 - Will begin treatment with Augmentin 875 mg PO BID for 10 days - The patient should also be given Mucinex for the first 5- 7 days of treatment. - Supportive care with plenty of fluids, rest, and analgesia prn. - AMOXICILLIN 875 MG-POTASSIUM CLAVULANATE 125 MG TABLET - Follow-up with your PCP in 3-5 days if symptoms have not improved or sooner if symptoms worsen - Discussed red flags and need for immediate medical evaluation if any occur. - Discussed supportive care treatment with fluids, rest and analgesia. - Discussed expected course of illness Talya Gilmore APRN.TSA SCREENER CNOV Observed: 04/27/2017 Status: COMPLETED Source: [place] 6:15 PM [facility] REPOSITORY Office Visit (UCWSTR) NICHOLE TRUONG ([id number]) 1965 F Date Time Provider Department 04/27/17 6:15 PM TALYA GILMORE (ROSEMARIE) [facility] During your visit today, we recorded the following information about you: Temperature Pulse Respiration Blood pressure 99.5 degrees 76/minute 16/minute 128/80 Weight 78.9 kg Talya Gilmore APRN.DEMARCO [place]STON 04/27/2017 6:49 PM Signed Subjective HPI Nichole Truong is a 52 year old female who presents with a cough, sinus pain and congestion for the past 7 days. Today she started having pain in her sinuses. She has taken an OTC sinus pill at home. She also tried zyrtec at home without relief. Review of Systems HENT: Positive for congestion, ear pain and sinus pain. Negative for sore throat. Respiratory: Positive for cough and sputum production. Negative for shortness of breath. Cardiovascular: Negative. Negative for chest pain. Gastrointestinal: Positive for diarrhea (past 2 days). Negative for abdominal pain, nausea and vomiting. Skin: Negative. BP 128/80 Pulse 76 Temp 37.5 ?C (99.5 ?F) (Tympanic) Resp 16 Wt 78.9 kg (174 lb) LMP 11/03/2010 BMI 27.15 kg/m2 PAST MEDICAL HISTORY Diagnosis Date - Anxiety state, unspecified - INSOMNIA NOS 02/14/2008 - LATERAL EPICONDYLITIS 03/19/2008 - Memory loss 08/07/2008 - Postsurgical hypothyroidism - Thyroid cancer (HCC) 2010 papillary; resected by Dr. Cartagena; treated with radioactive iodine PAST SURGICAL HISTORY Procedure Laterality Date - ; THYROIDECTOMY TOTAL OR COMPLETE 2010 - PAST SURGICAL HISTORY OF 2001 LEFT KNEE ARTHROSCOPY ALLERGIES Prednisone; Emycin [Erythromycin]; Wellbutrin [Bupropion] MEDICATIONS cyclobenzaprine (FLEXERIL) 10 mg tablet Take 0.5-1 tablets by mouth at bedtime as needed for Muscle Spasm. PARoxetine (PAXIL) 20 mg tablet Take 1 tablet by mouth once daily. As directed fluticasone (FLONASE) 50 mcg/actuation nasal spray Use 2 Sprays in each nostril once daily. Rinse mouth after use. cetirizine (ZYRTEC) 10 mg tablet Take 1 tablet by mouth once daily. levothyroxine (SYNTHROID) 100 mcg tablet Take 1 tablet by mouth daily before breakfast. Only 1/2 pill on Sundays. FAMILY HISTORY Problem Relation Age of Onset - Hypertension Mother - Diabetes Father - Thyroid Sister HYPO - Thyroid Brother HYPO - Cancer Maternal Grandmother BLADDER - Diabetes Paternal Grandmother - goiter [OTHER] Other Maternal great grandmother Social History Substance Use Topics - Smoking status: Never Smoker - Smokeless tobacco: Never Used - Alcohol use Yes Comment: RARE Objective Physical Exam Constitutional: She is well-developed, well-nourished, and in no distress. HENT: Head: Normocephalic. Right Ear: Tympanic membrane, external ear and ear canal normal. Left Ear: Tympanic membrane, external ear and ear canal normal. Nose: Rhinorrhea and sinus tenderness present. Right sinus exhibits maxillary sinus tenderness and frontal sinus tenderness. Left sinus exhibits maxillary sinus tenderness and frontal sinus tenderness. Mouth/Throat: Uvula is midline, oropharynx is clear and moist and mucous membranes are normal. Mucous membranes are not pale and not dry. No posterior oropharyngeal edema or posterior oropharyngeal erythema. Eyes: Conjunctivae are normal. Right eye exhibits no discharge. Left eye exhibits no discharge. Neck: Neck supple. Cardiovascular: Normal rate, regular rhythm and normal heart sounds. Pulmonary/Chest: Effort normal and breath sounds normal. Lymphadenopathy: She has no cervical adenopathy. Neurological: She is alert. Skin: Skin is warm and dry. No rash noted. Nursing note and vitals reviewed. ASSESSMENT/PLAN: 1. Acute rhinosinusitis - ICD9: 461.9, ICD10: J01.90 - Will begin treatment with Augmentin 875 mg PO BID for 10 days - The patient should also be given Mucinex for the first 5- 7 days of treatment. - Supportive care with plenty of fluids, rest, and analgesia prn. - AMOXICILLIN 875 MG-POTASSIUM CLAVULANATE 125 MG TABLET - Follow-up with your PCP in 3-5 days if symptoms have not improved or sooner if symptoms worsen - Discussed red flags and need for immediate medical evaluation if any occur. - Discussed supportive care treatment with fluids, rest and analgesia. - Discussed expected course of illness DEMARCO Sarabia APRN.CNP, APRN.CNP 04/27/2017 6:45 PM Signed Generic mucinex (guaifenisin) for congestion. Acute Sinusitis Each of us has four paired cavities (spaces) in our head that are connected to the nose by narrow channels. These cavities, known as sinuses, produce thin mucus that drains out of the channels of the nose. This drainage helps keep the nose clean and free of particles and bacteria. Normally, sinuses are filled with air. But when sinuses become blocked and filled with fluid, bacteria can grow and cause an infection (bacterial sinusitis). Conditions that cause sinus blockage include: ? the common cold ? allergic rhinitis (swelling of the lining of the nose due to allergies) ? nasal polyps (small growths in the lining of the nose), or ? a deviated septum (the wall between the left and right nostril is crooked). Allergies, such as hay fever, can also cause swelling and poor drainage of the sinuses. One confusing factor to consider is that many people with ?sinus headaches? are actually suffering from migraines. In fact, in large clinical studies, up to 90% of people who reported sinus headaches were diagnosed with migraines instead. Migraines can cause headaches in combination with facial pressure over the sinuses, a runny nose, and nasal congestion. If you have symptoms that involve the sinuses, it may be difficult to tell if you have sinusitis, a cold, nasal allergy, or even a migraine. This article will describe the symptoms, diagnosis, and treatment of sinusitis, and how to tell the difference between sinusitis, cold, migraines, and nasal allergy. What is sinusitis? Sinusitis is an inflammation, or swelling, of the tissue lining the sinuses. There are two types of sinusitis: ? Acute bacterial sinusitis: a sudden onset of cold symptoms such as runny nose, stuffy nose, and facial pain that does not go away after 10 days, or symptoms that seem to begin improving but return worse than the initial symptoms. It responds well to antibiotics and decongestants. ? Chronic sinusitis: a condition defined by nasal congestion, drainage, facial pain/pressure, and decreased sense of smell for at least 12 weeks. Who gets sinusitis? Every year, approximately 1 billion Americans have at least one episode of viral sinusitis. About 37 million will develop a bacterial sinusitis. People who have the following conditions have a higher risk of sinusitis: ? Nasal mucus membrane swelling, as from a common cold or allergies ? Blockage of drainage ducts, leading to trapping of mucus ? Structure differences that narrow the drainage ducts ? Conditions that result in an increased risk of infection ? Polyps (growths) In children, common factors in the environment that contribute to sinusitis include allergies, illness from other children at day care or school, and smoke in the environment. In adults, the contributing factors are most frequently viral infections, allergies, and smoking. What are the signs and symptoms of acute sinusitis? The primary symptoms of acute sinusitis include: ? Facial pain/pressure/tenderness ? Nasal stuffiness ? Nasal discharge (thick yellow or green discharge from nose), especially if it is long-lasting. These also may be present with viral illness. ? Loss of smell and taste ? Cough/congestion Additional symptoms may include: ? Fever of 102? or higher ? Ear pain ? Headache ? Bad breath ? Fatigue ? Ache in upper jaw and teeth How is sinusitis diagnosed? To diagnose sinusitis, your doctor will discuss your symptoms and examine your nose for swelling and drainage. Your personal history is most important in diagnosing sinusitis. A physical exam of the ears, nose, and throat is performed to look for signs of obstruction (blockage) or infection. Some patients may have conditions that may need to be referred to a specialist, such as an ear, nose, and throat (ENT) physician. How is sinusitis treated? Acute sinusitis. If you have a simple sinusitis infection, your health care provider may recommend treatment with gzbr-crh-sfjehxo medications for cold and allergy, nasal saline irrigation, and drinking fluids (as most sinusitis is viral). Use of prescription intranasal steroid sprays might be added to help control symptoms. However, non-prescription drops or sprays should not be used beyond 5 days -- or they may actually increase congestion. If symptoms do not improve after at least 10 days, if the symptoms seem to be getting worse, or if medications for cold or allergy do not improve symptoms, a bacterial infection may be causing the sinusitis. In this case, antibiotics are given for 7 days in adults and 10 days in children. Antibiotics should improve symptoms within 48 hours. Chronic sinusitis. Treating chronic sinusitis begins with controlling the underlying condition, which is most often allergies. Standard treatments include intranasal steroid sprays, topical antihistamine sprays, or antihistamine pills, and leukotriene antagonists such as montelukast. Often you will be encouraged to rinse the nose with saline irrigations. Sometimes medications may be added to these irrigations. If sinusitis is not controlled, the next step is a visit with an Ear, Nose and Throat Specialist. Will I need to make lifestyle changes? If you have indoor allergies, avoiding triggers -- such as animal dander and dust mites ? is recommended in addition to medications. Smoking is never recommended, but if you do smoke, strongly consider a program to help you stop smoking, as this may be the main reason you have sinus infections. No special diet is required, but drinking extra fluids helps to thin nasal secretions. What are the symptoms of the common cold? An upper respiratory infection (the common cold) is usually caused by a virus that infects the nose and throat. Most upper respiratory infections are not bacterial and do not respond to antibiotics. A cold may cause swelling in the sinuses, preventing the outflow of mucus. Cold symptoms include nasal congestion, runny nose, post-nasal drip (uyop-ah-canz release of nasal fluid into the back of the throat), headache, achiness, and fatigue. Cough and fever may also go along with these symptoms. Cold symptoms usually build, peak, and slowly disappear. No treatment is necessary for a cold, but some medications can ease symptoms. For example, decongestants may decrease drainage and open the nasal passages. Analgesics (pain relievers) may help with fever and headache. Cough medication may help, as well. Colds will typically last from a few days to about a week. What is the harm in getting an antibiotic for a common cold? Viral infections like the common cold are not cured by antibiotics. Taking an antibiotic for a viral infection unnecessarily puts you at risk for side effects related to the antibiotic. In addition, the overuse of antibiotics leads to antibiotic resistance, which may make future infections more difficult to treat. Finally, the use of inappropriate medication increases health care costs unnecessarily. What are the symptoms of nasal allergy? Symptoms of nasal allergy include: ? Sneezing ? Itchy nose ? Clear, watery nasal discharge ? Nasal blockage ? Feeling fatigued How is nasal allergy treated? Usually medications are prescribed to relieve symptoms. These may include antihistamines, with or without decongestants, or steroid nasal sprays. Other nasal sprays, which deliver antihistamines or cromolyn sodium, are sometimes helpful. If allergy symptoms are chronic (long-term), allergy testing and allergy shots (immunotherapy) may be helpful. How can I tell if I have a sinus infection, cold, or nasal allergy? Although the symptoms of sinusitis and nasal allergy may occur with a common cold, in general, cold-related symptoms disappear within 1 week. The point at which a normal cold ends and a sinus condition begins is not always easy to know. If you are fighting off a cold and develop symptoms of a sinus infection or nasal allergy, see your health care provider. You will be asked to describe your symptoms and medical history. ? How do I know if my sinus condition requires the care of an ear, nose, and throat specialist? Most routine sinus conditions are easily cared for by primary care physicians. If, however, you are bothered by ongoing abnormal symptoms, recurring infections, or have abnormal X-ray findings or complications, a referral to a specialist is appropriate. References ? Belle Isaac et al., IDSA Clinical Practice Guideline for Acute Bacterial Rhinosinusitis in Children and Adults. Clinical Infectious Diseases; 2012;54(8):9188-8025. ? Essence Combs, Sinusitis: Allergies, antibiotics, aspirin, asthma. [facility] Journal of Medicine 2006; 73(7): 671-678 ? [employer] [place] of Allergy and Infectious Diseases. Sinusitis (Sinus Infection) Accessed 12/18/2014. ? [employer]hma, and Immun[employer]. Sinusitis Accessed 12/18/2014. ? [employer], Asthma ANDamp; Immunology. Sinus Information Accessed 12/18/2014. ? Jhonny Jones., Prevalence of migraine in patients with a history of self-reported or physician-diagnosed ANDquot;sinusANDquot; headache. Arch [employer]itter Mechanic Med, 2004. 164(16):1769-72. ? Copyright 2600-9152 [facility]. All rights reserved. Referring Provider: SELF [200] Allergies As of Date: 04/27/2017 Noted Allergy Reaction PREDNISONE 07/25/2012 4 - Hives 9 - Itching EMYCIN (ERYTHROMYCIN) 08/14/2005 WELLBUTRIN (BUPROPION) 01/08/2014 14 - Other: See Comments Comments: felt mean on it; better off Date Reviewed: 04/27/2017 Reviewed by: Talya ([facility]) CHARISSE Gilmore.TSA SCREENER - Fully Assessed Reason for Visit: Sinus Problem [99] Cmt: sinus pressure and drainage x 1 week Primary Visit Diagnosis:Acute rhinosinusitis [J01.90] Order(s):amoxicillin-clavulanic acid (AUGMENTIN) 875-125 mg per tabletTake 1 tablet by mouth twice daily for 10 days.Disp: 20 tabletRfl: 0 Prescriptions as of 04/27/2017 Sig: CYCLOBENZAPRINE 10 MG TABLET Take 0.5-1 tablets by mouth a* PAROXETINE 20 MG TABLET Take 1 tablet by mouth once d* FLUTICASONE 50 MCG/ACTUATION * Use 2 Sprays in each nostril * CETIRIZINE 10 MG TABLET Take 1 tablet by mouth once d* LEVOTHYROXINE 100 MCG TABLET Take 1 tablet by mouth daily * AMOXICILLIN 875 MG-POTASSIUM * Take 1 tablet by mouth twice * Problem List As Of Date 04/27/2017 Noted Resolved Anxiety [F41.9] INVALID FOR* More... Insomnia [G47.00] INVALID FOR* Abdominal Pain, Right Upper Quadrant [R10.11] INVALID FOR*07/25/2012 Malignant neoplasm of thyroid gland [C73] INVALID FOR*05/02/2010 History of thyroid cancer [Z85.850] INVALID FOR* More... 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 Acute Sinusitis Each of us has four paired cavities (spaces) in our head that are connected to the nose by narrow channels. These cavities, known as sinuses, produce thin mucus that drains out of the channels of the nose. This drainage helps keep the nose clean and free of particles and bacteria. Normally, sinuses are filled with air. But when sinuses become blocked and filled with fluid, bacteria can grow and cause an infection (bacterial sinusitis). Conditions that cause sinus blockage include: ? the common cold ? allergic rhinitis (swelling of the lining of the nose due to allergies) ? nasal polyps (small growths in the lining of the nose), or ? a deviated septum (the wall between the left and right nostril is crooked). Allergies, such as hay fever, can also cause swelling and poor drainage of the sinuses. One confusing factor to consider is that many people with ?sinus headaches? are actually suffering from migraines. In fact, in large clinical studies, up to 90% of people who reported sinus headaches were diagnosed with migraines instead. Migraines can cause headaches in combination with facial pressure over the sinuses, a runny nose, and nasal congestion. If you have symptoms that involve the sinuses, it may be difficult to tell if you have sinusitis, a cold, nasal allergy, or even a migraine. This article will describe the symptoms, diagnosis, and treatment of sinusitis, and how to tell the difference between sinusitis, cold, migraines, and nasal allergy. What is sinusitis? Sinusitis is an inflammation, or swelling, of the tissue lining the sinuses. There are two types of sinusitis: ? Acute bacterial sinusitis: a sudden onset of cold symptoms such as runny nose, stuffy nose, and facial pain that does not go away after 10 days, or symptoms that seem to begin improving but return worse than the initial symptoms. It responds well to antibiotics and decongestants. ? Chronic sinusitis: a condition defined by nasal congestion, drainage, facial pain/pressure, and decreased sense of smell for at least 12 weeks. Who gets sinusitis? Every year, approximately 1 billion Americans have at least one episode of viral sinusitis. About 37 million will develop a bacterial sinusitis. People who have the following conditions have a higher risk of sinusitis: ? Nasal mucus membrane swelling, as from a common cold or allergies ? Blockage of drainage ducts, leading to trapping of mucus ? Structure differences that narrow the drainage ducts ? Conditions that result in an increased risk of infection ? Polyps (growths) In children, common factors in the environment that contribute to sinusitis include allergies, illness from other children at day care or school, and smoke in the environment. In adults, the contributing factors are most frequently viral infections, allergies, and smoking. What are the signs and symptoms of acute sinusitis? The primary symptoms of acute sinusitis include: ? Facial pain/pressure/tenderness ? Nasal stuffiness ? Nasal discharge (thick yellow or green discharge from nose), especially if it is long-lasting. These also may be present with viral illness. ? Loss of smell and taste ? Cough/congestion Additional symptoms may include: ? Fever of 102? or higher ? Ear pain ? Headache ? Bad breath ? Fatigue ? Ache in upper jaw and teeth How is sinusitis diagnosed? To diagnose sinusitis, your doctor will discuss your symptoms and examine your nose for swelling and drainage. Your personal history is most important in diagnosing sinusitis. A physical exam of the ears, nose, and throat is performed to look for signs of obstruction (blockage) or infection. Some patients may have conditions that may need to be referred to a specialist, such as an ear, nose, and throat (ENT) physician. How is sinusitis treated? Acute sinusitis. If you have a simple sinusitis infection, your health care provider may recommend treatment with yqfh-rov-sbkgsit medications for cold and allergy, nasal saline irrigation, and drinking fluids (as most sinusitis is viral). Use of prescription intranasal steroid sprays might be added to help control symptoms. However, non- prescription drops or sprays should not be used beyond 5 days -- or they may actually increase congestion. If symptoms do not improve after at least 10 days, if the symptoms seem to be getting worse, or if medications for cold or allergy do not improve symptoms, a bacterial infection may be causing the sinusitis. In this case, antibiotics are given for 7 days in adults and 10 days in children. Antibiotics should improve symptoms within 48 hours. Chronic sinusitis. Treating chronic sinusitis begins with controlling the underlying condition, which is most often allergies. Standard treatments include intranasal steroid sprays, topical antihistamine sprays, or antihistamine pills, and leukotriene antagonists such as montelukast. Often you will be encouraged to rinse the nose with saline irrigations. Sometimes medications may be added to these irrigations. If sinusitis is not controlled, the next step is a visit with an Ear, Nose and Throat Specialist. Will I need to make lifestyle changes? If you have indoor allergies, avoiding triggers -- such as animal dander and dust mites ? is recommended in addition to medications. Smoking is never recommended, but if you do smoke, strongly consider a program to help you stop smoking, as this may be the main reason you have sinus infections. No special diet is required, but drinking extra fluids helps to thin nasal secretions. What are the symptoms of the common cold? An upper respiratory infection (the common cold) is usually caused by a virus that infects the nose and throat. Most upper respiratory infections are not bacterial and do not respond to antibiotics. A cold may cause swelling in the sinuses, preventing the outflow of mucus. Cold symptoms include nasal congestion, runny nose, post- nasal drip (xyuv-uz-rnoi release of nasal fluid into the back of the throat), headache, achiness, and fatigue. Cough and fever may also go along with these symptoms. Cold symptoms usually build, peak, and slowly disappear. No treatment is necessary for a cold, but some medications can ease symptoms. For example, decongestants may decrease drainage and open the nasal passages. Analgesics (pain relievers) may help with fever and headache. Cough medication may help, as well. Colds will typically last from a few days to about a week. What is the harm in getting an antibiotic for a common cold? Viral infections like the common cold are not cured by antibiotics. Taking an antibiotic for a viral infection unnecessarily puts you at risk for side effects related to the antibiotic. In addition, the overuse of antibiotics leads to antibiotic resistance, which may make future infections more difficult to treat. Finally, the use of inappropriate medication increases health care costs unnecessarily. What are the symptoms of nasal allergy? Symptoms of nasal allergy include: ? Sneezing ? Itchy nose ? Clear, watery nasal discharge ? Nasal blockage ? Feeling fatigued How is nasal allergy treated? Usually medications are prescribed to relieve symptoms. These may include antihistamines, with or without decongestants, or steroid nasal sprays. Other nasal sprays, which deliver antihistamines or cromolyn sodium, are sometimes helpful. If allergy symptoms are chronic (long- term), allergy testing and allergy shots (immunotherapy) may be helpful. How can I tell if I have a sinus infection, cold, or nasal allergy? Although the symptoms of sinusitis and nasal allergy may occur with a common cold, in general, cold-related symptoms disappear within 1 week. The point at which a normal cold ends and a sinus condition begins is not always easy to know. If you are fighting off a cold and develop symptoms of a sinus infection or nasal allergy, see your health care provider. You will be asked to describe your symptoms and medical history. ? How do I know if my sinus condition requires the care of an ear, nose, and throat specialist? Most routine sinus conditions are easily cared for by primary care physicians. If, however, you are bothered by ongoing abnormal symptoms, recurring infections, or have abnormal X-ray findings or complications, a referral to a specialist is appropriate. References ? Poncho A. et al., IDSA Clinical Practice Guideline for Acute Bacterial Rhinosinusitis in Children and Adults. Clinical Infectious Diseases; 2012;54(8):7348-9268. ? Essence Combs, Sinusitis: Allergies, antibiotics, aspirin, asthma. [facility] Journal of Medicine 2006; 73(7): 671-678 ? [employer] [place] of Allergy and Infectious Diseases. Sinusitis (Sinus Infection) Accessed 12/18/2014. ? [employer] [employer] All[employer], Asthma, and Immunology. Sinusitis Accessed 12/18/2014. ? [place], [employer] AND Immunology. Sinus Information Accessed 12/18/2014. ? Jhonny Jones., Prevalence of migraine in patients with a history of self-reported or physician-diagnosed sinus headache. Arch [employer] Med, 2004. 164(16):1769-72. ? Copyright 0107-0656 [facility]. All rights reserved. Prescriptions ordered this encounter Disp Refills Start End AMOXICILLIN 875 MG-POTASSIUM CLAVULA* 20 t* 0 04/27/2017 05/07/2017 Route: ORAL Sig: Take 1 tablet by mouth twice daily for 10 days. Encounter Status:Closed by TALYA GILMORE on 04/27/17 PROGRESS Observed: 04/16/2017 Status: COMPLETED Source: [place]IG[place] 5:07 PM [facility] [place] REPOSITORY HNO ID: [id number] Author: [place] Service: (none) Author Type: Physician Type: Progress Notes Filed: 04/26/2017 12:23 AM Note Text: Patient presents with: Recheck SUBJECTIVE: Nichole Truong is a 51 year old year old lady here today for 6 month follow up appointment for review of medical conditions. Cymbalta helped for a year then stopped helping. Willard blah and more grumpy. TMJ issues noted. PAST MEDICAL HISTORY Diagnosis Date - Anxiety state, unspecified - INSOMNIA NOS 02/14/2008 - LATERAL EPICONDYLITIS 03/19/2008 - Memory loss 08/07/2008 - Postsurgical hypothyroidism - Thyroid cancer (HCC) 2010 papillary; resected by Dr. Cartagena; treated with radioactive iodine Current Outpatient Prescriptions: fluticasone (FLONASE) 50 mcg/actuation nasal spray Use 2 Sprays in each nostril once daily. Rinse mouth after use. cetirizine (ZYRTEC) 10 mg tablet Take 1 tablet by mouth once daily. levothyroxine (SYNTHROID) 100 mcg tablet Take 1 tablet by mouth daily before breakfast. Only 1/2 pill on Sundays. DULoxetine (CYMBALTA) 20 mg capsule Take 1 capsule by mouth twice daily. As directed DULoxetine (CYMBALTA) 20 mg capsule Take 1 capsule by mouth twice daily. No current facility-administered medications for this visit. OBJECTIVE: BP 128/70 Pulse 72 Wt 79.4 kg (175 lb) LMP 11/03/2010 BMI 27.31 kg/m2 Patient is alert, oriented times 3, no apparent distress, affect is bright, reactive. Last 5 Encounter BP Readings: Date: BP: 04/16/2017 128/70 10/14/2016 124/80 04/13/2016 122/80 03/18/2016 120/64 03/06/2016 130/80 Last 5 Encounter Wt Readings: Date: Wt: 04/16/2017 79.4 kg (175 lb) 10/14/2016 78 kg (172 lb) 04/13/2016 78 kg (172 lb) 03/18/2016 78 kg (172 lb) 03/06/2016 77.1 kg (170 lb) HEENT: TMJ clicks with open and closing. Heart: Regular rate, rhythm, no murmurs, gallops, rubs. Lungs: Clear to auscultation, bilaterally, breathing non labored. Ext: No cyanosis, clubbing, or edema. ASSESSMENT AND PLAN: Encounter Diagnosis ICD-10-CM 1. Anxiety F41.9 2. Psychophysiological insomnia F51.04 3. Dysthymia F34.1 4. Visit for screening mammogram Z12.31 MELISSA SCREENING 5. Screening for colon cancer Z12.11 FECAL OCCULT BLOOD TEST Ibuprofen OTC as directed. Above issues addressed with patient. Patient involved in shared decision making for management of her medical issues. History and medications reviewed. Epic updated as needed Refills taken care of and meds adjusted as indicated after reviewed history, exam and labs. Health Maintenance reviewed. Updated record and/or ordered tests as recorded. Encouraged on efforts at healthy diet and regular exercise and adequate sleep. Needs to keep working on diet and exercise with lifestyle changes for effective weight loss. Discussed stressors at work. Overall doing okay. Continues present management with meds for anxiety and dysthymia. Emotional support given. Further evaluation and treatment as indicated. The majority of the visit was spent counseling and/or coordinating care for the patient. Nzak-wn-akux time was at least 20 minutes. [place] MD CNOV Observed: 04/16/2017 Status: COMPLETED Source: ENIGMA 4:00 PM [facility] REPOSITORY Office Visit (INTMWS) NICHOLE TRUONG ([id number]) 1965 F Date Time Provider Department 04/16/17 4:00 PM [place] [facility] During your visit today, we recorded the following information about you: Pulse Blood pressure Weight 72/minute 128/70 79.4 kg [place] MD 04/26/2017 12:23 AM Signed Patient presents with: Recheck SUBJECTIVE: Nichole Truong is a 51 year old year old lady here today for 6 month follow up appointment for review of medical conditions. Cymbalta helped for a year then stopped helping. Willard blah and more grumpy. TMJ issues noted. PAST MEDICAL HISTORY Diagnosis Date - Anxiety state, unspecified - INSOMNIA NOS 02/14/2008 - LATERAL EPICONDYLITIS 03/19/2008 - Memory loss 08/07/2008 - Postsurgical hypothyroidism - Thyroid cancer (HCC) 2010 papillary; resected by Dr. Cartagena; treated with radioactive iodine Current Outpatient Prescriptions: fluticasone (FLONASE) 50 mcg/actuation nasal spray Use 2 Sprays in each nostril once daily. Rinse mouth after use. cetirizine (ZYRTEC) 10 mg tablet Take 1 tablet by mouth once daily. levothyroxine (SYNTHROID) 100 mcg tablet Take 1 tablet by mouth daily before breakfast. Only 1/2 pill on Sundays. DULoxetine (CYMBALTA) 20 mg capsule Take 1 capsule by mouth twice daily. As directed DULoxetine (CYMBALTA) 20 mg capsule Take 1 capsule by mouth twice daily. No current facility-administered medications for this visit. OBJECTIVE: BP 128/70 Pulse 72 Wt 79.4 kg (175 lb) LMP 11/03/2010 BMI 27.31 kg/m2 Patient is alert, oriented times 3, no apparent distress, affect is bright, reactive. Last 5 Encounter BP Readings: Date: BP: 04/16/2017 128/70 10/14/2016 124/80 04/13/2016 122/80 03/18/2016 120/64 03/06/2016 130/80 Last 5 Encounter Wt Readings: Date: Wt: 04/16/2017 79.4 kg (175 lb) 10/14/2016 78 kg (172 lb) 04/13/2016 78 kg (172 lb) 03/18/2016 78 kg (172 lb) 03/06/2016 77.1 kg (170 lb) HEENT: TMJ clicks with open and closing. Heart: Regular rate, rhythm, no murmurs, gallops, rubs. Lungs: Clear to auscultation, bilaterally, breathing non labored. Ext: No cyanosis, clubbing, or edema. ASSESSMENT AND PLAN: Encounter Diagnosis ICD-10-CM 1. Anxiety F41.9 2. Psychophysiological insomnia F51.04 3. Dysthymia F34.1 4. Visit for screening mammogram Z12.31 MELISSA SCREENING 5. Screening for colon cancer Z12.11 FECAL OCCULT BLOOD TEST Ibuprofen OTC as directed. Above issues addressed with patient. Patient involved in shared decision making for management of her medical issues. History and medications reviewed. Epic updated as needed Refills taken care of and meds adjusted as indicated after reviewed history, exam and labs. Health Maintenance reviewed. Updated record and/or ordered tests as recorded. Encouraged on efforts at healthy diet and regular exercise and adequate sleep. Needs to keep working on diet and exercise with lifestyle changes for effective weight loss. Discussed stressors at work. Overall doing okay. Continues present management with meds for anxiety and dysthymia. Emotional support given. Further evaluation and treatment as indicated. The majority of the visit was spent counseling and/or coordinating care for the patient. Jsyl-ow-odga time was at least 20 minutes. India Rock MD Referring Provider: SELF [200] Allergies As of Date: 04/16/2017 Noted Allergy Reaction PREDNISONE 07/25/2012 4 - Hives 9 - Itching EMYCIN (ERYTHROMYCIN) 08/14/2005 WELLBUTRIN (BUPROPION) 01/08/2014 14 - Other: See Comments Comments: felt mean on it; better off Date Reviewed: 04/16/2017 Reviewed by: Milton Aguilera Cma - Fully Assessed Reason for Visit: Recheck [92] Primary Visit Diagnosis:Anxiety [F41.9] Other Visit Diagnoses:Psychophysiological insomnia [F51.04] Dysthymia [F34.1] Visit for screening mammogram [Z12.31] Screening for colon cancer [Z12.11] Order(s):MELISSA SCREENING [3682528] Order #: [id number] FUTURE FECAL OCCULT BLOOD TEST [SQIFOBT] Order #: [id number] FUTURE cyclobenzaprine (FLEXERIL) 10 mg tabletTake 0.5-1 tablets by mouth at bedtime as needed for Muscle Spasm.Disp: 30 tabletRfl: 1 PARoxetine (PAXIL) 20 mg tabletTake 1 tablet by mouth once daily. As directedDisp: 30 tabletRfl: 1 Prescriptions as of 04/16/2017 Sig: FLUTICASONE 50 MCG/ACTUATION * Use 2 Sprays in each nostril * CETIRIZINE 10 MG TABLET Take 1 tablet by mouth once d* LEVOTHYROXINE 100 MCG TABLET Take 1 tablet by mouth daily * CYCLOBENZAPRINE 10 MG TABLET Take 0.5-1 tablets by mouth a* PAROXETINE 20 MG TABLET Take 1 tablet by mouth once d* Medication notes this encounter DULOXETINE 20 MG CAPSULE,DELAYED RELEASE >> Milton Aguilera Cma 04/16/2017 4:22 PM >> MILTON AGUILERA CMA WedApr 16, 2017 4:22 PM Pt weaned off this medication DULOXETINE 20 MG CAPSULE,DELAYED RELEASE >> Milton Aguilera Bowling Pin Refinisher 04/16/2017 4:22 PM >> WILLY HOLLOWAY, MILTON WedApr 16, 2017 4:22 PM Pt weaned off this medication Problem List As Of Date 04/16/2017 Noted Resolved Anxiety [F41.9] INVALID FOR* More... Insomnia [G47.00] INVALID FOR* Abdominal Pain, Right Upper Quadrant [R10.11] INVALID FOR*07/25/2012 Malignant neoplasm of thyroid gland [C73] INVALID FOR*05/02/2010 History of thyroid cancer [Z85.850] INVALID FOR* More... 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 PAROXETINE 20 MG TABLET 30 t* 1 04/16/2017 Route: ORAL Sig: Take 1 tablet by mouth once daily. As directed Medications Discontinued During This Encounter DULoxetine (CYMBALTA) 20 mg capsule 180 * 3 10/14/2016 04/16/2017 Cmt: Intentional dose increase Route: ORAL Sig: Take 1 capsule by mouth twice daily. Disc: Reason for discontinue is not on file. DULoxetine (CYMBALTA) 20 mg capsule 60 c* 0 10/14/2016 04/16/2017 Route: ORAL Sig: Take 1 capsule by mouth twice daily. As directed Disc: Reason for discontinue is not on file. Disposition: Return in about 6 months (around 10/17/2017) for 6 months follow up. Follow-up and Disposition History Recorded Encounter Status:Closed by INDIA ROCK MD on 04/26/17 ALLERGIES ALLERGIES DATE TYPE / CODE NAME / CODE REACTION SEVERITY SOURCE 02/21/2018 Drug erythromycin Hives [place] [facility] Allergy/416 base/[id number](RXN Community 317039(SNOM ORM) Hospital ED CT) Repository 01/08/2014 DRUG BUPROPION OTHER: SEE C [facility] INGREDI/[address] 529433(SNOM Repository ED CT) 07/25/2012 DRUG PREDNISONE HIVES Med [facility] INGREDI/[address] 005481(SNOM Repository ED CT) 08/14/2005 DRUG/992416 ERYTHROMYCIN [facility] 003(SNOMED [address]) Repository ENCOUNTERS ENCOUNTERS ADMIT/DISCHARGE ACCOUNT ADMITTING ENCOUNTER LOCATION SOURCE NUMBER CLASS 02/28/2018 [id number] [facility] ing:US Repository 02/21/2018 [id number] [facility] ing:LAB Repository 02/21/2018/02/21/19 [id number] Ambulatory BMSBuilding:B [place] [address] Repository 02/14/2018 [id number] [facility] ing:LAB Repository 02/14/2018/02/15/[id number] Repository 02/03/2018/02/04/20 [id number] Ambulatory BMSBuilding:B [place] [address] [facility] Repository 02/03/2018 [id number] [facility] ing:OPBI Repository 01/03/2018/01/04/[id number] Repository 10/23/2017/10/24/19 [id number] Ambulatory [address] Repository 10/20/2017/11/03/19 [id number] Ambulatory [address] Repository 04/27/2017/04/29/19 [id number] Ambulatory [address] Repository 04/16/2017/04/20/19 [id number] Ambulatory [address] Repository 01/27/2017/01/28/20 [id number] Ambulatory BMSBuilding:B [place] [address] [facility] Repository PAYERS PAYERS ENCOUNTER GUARANTOR PAYER SUBSCRIBER SOURCE 02/28/2018 ABIMAEL [id number] Insurance:MEDICAL WINKLERDOB: [facility] [id number] Number: Repository [address]Fyy: 330 [id number] [phone] (HP) Date:2047-33-57UT [address] [address]SS: 02/28/2018 Secondary NOT GIVENUNK Aram Insurance:SELF PAY [facility] Number: Effective Repository Date:2018-02-21 02/21/2018 ABIMAEL L Primary NICHOLE L Ar[place] [id number] Insurance:MEDICAL WINKLERDOB: [facility] 7594[place] Number: Repository [address]Krw: 330 [id number] [phone] (HP) Date:8506-53-70YA [address] [address]LL: 02/21/2018 Secondary NOT GIVENUNK Aram Insurance:SELF PAY [facility] Number: Effective Repository Date:2018-02-21 02/21/2018 ABIMAEL L Primary NICHOLE L Ar[place] [id number] Insurance:MEDICAL WINKLERDOB: [facility] 4687[place] Number: Repository [address]Enl: 330 [id number] [phone] (HP) Date:7244-54-59ES [address] [address]IZ: 02/21/2018 Secondary NOT GIVENUNK Aram Insurance:SELF PAY [facility] Number: Effective Repository Date:2018-02-21 02/14/2018 ABIMAEL L Primary NICHOLE L [place] [id number] Insurance:MEDICAL WINKLERDOB: [facility] 6888-[place] Number: Repository [address]Dqg: 330 [id number] [phone] (HP) Date:5943-60-94PY [address] [address]TH: 02/14/2018 Secondary NOT GIVENUNK [place] Insurance:SELF PAY [facility] Number: Effective Repository Date:2018-02-14 02/03/2018 ABIMAEL [place] Primary NICHOLE Chiu [id number] Insurance:MEDICAL WINKLERDOB: [facility] 5089[place] Number: Repository [address]Vqh: 330 [id number] [phone] (HP) Date:9906-65-45HS [address] [place], [place] [address]WP: 02/03/2018 Secondary NOT GIVENUNK Aram Insurance:SELF PAY [facility] Number: Effective Repository Date:2018-02-03 02/03/2018 ABIMAEL [place] Primary NICHOLE [place] [id number] Insurance:MEDICAL WINKLERDOB: [facility] 1811[place]56[place] Number: Repository [address]Ira: 330 [id number] [phone] (HP) Date:3194-82-14HQ [address] [place] [address]VJ: 02/03/2018 Secondary NOT GIVENUNK Aram Insurance:SELF PAY [facility] Number: Effective Repository Date:2017-11-29 01/27/2017 Abimael [place] Primary NICHOLE Chiu [id number] Insurance:MEDICAL WINKLERDOB: [facility] 4131[place] Number: Repository [address]Hao: 330 [id number] [phone] (HP) Date:5881-99-40WX [address] [place] [address]FT: 01/27/2017 Secondary NOT GIVENUNK [place] Insurance:SELF PAY [facility] Number: Effective Repository Date:2017-01-10
--- OUTSIDE RECORDS SUMMARY | 2018-05-02 15:58 | XMS RPT_ITS | Clinical Summary ---
:1965 Author Organization [facility] Address [address] [place] [address] Phone Care Team Providers Name Role Phone Tanesha Teixeira NP Unavailable Conditions or Problems Problem Problem Code Onset Status Entry Provider Comment Standard Annotate Name Date Date Description Thyroid [id number] Tanesha Saldivar Malignant cancer (SNOMED CT) Puneet PALOMINO tumor of thyroid gland Anxiety 866513389 Active Lisa A Anxiety Disorder (SNOMED CT) [place] disorder Medications Medication Instructions Start Stop Generic Name NDC Provider Date Date SYNTHROID 100 One tablet by LEVOTHYROXINE [id number] Tanesha Yariel MCG TABS mouth daily 0 SODIUM Shook ELECTRONIC CALIBRATION TECHNICIAN SYNTHROID 100 Take tablet one LEVOTHYROXINE [id number] Tanesha Yariel MCG TABS daily 0 SODIUM Puneet ELECTRONIC CALIBRATION TECHNICIAN CYMBALTA 30 MG One tablet by DULOXETINE HCL 62178675598 Lisa A CPEP mouth daily 0 [place] Medications Administered No information available. Allergies, Adverse Reactions, Alerts Allergy Name Reaction Description Start Date Severity Status Provider ERYTHROMYCIN Mild Active Lisa A [place] Results Date Name Value Unit Range Flag Description Office Visit MEDS REVIEW Done Documentation of current medications (procedure) FALLRSKASSES No Fall risk assessment ALCOHOLCOUNS no Alcoholism counseling (procedure) DIET GLASS CYLINDER FLANGER yes Dietary management education, guidance, and counseling (procedure) ORALTOBACUSE Never Tobacco smoking status NHIS SMOK STATUS Never smoker Tobacco use [facility] Lab Report: Thyroid Stim Hormone (TSH) TSH 0.81 u[iU]/mL 0.358-3.74 thyroid stimulating hormone, serum Lab Report: T4 Free Direct T4, FREE 1.19 ng/dL 0.76-1.46 thyroxine, serum, free Lab Report: Thyroglobulin Antibody ZZ-GE-unk < 1.0 IU/mL 0.0-0.9 GE use only - for LinkLogic import when terms are not otherwise specified Plan of Care Type Date Detail Pending order *TSH Pending order *T4 free Pending order *MISC - Miscellaneous Lab Test #1 Pending order Thyroid (Soft tissue neck) Procedures Code Procedure Name Date Entry Date 3016-3 *TSH 3024-7 *T4 free 0453-1 *MISC - Miscellaneous Lab Test #1 CPT-37911 US Thyroid (Soft tissue neck) Vital Signs Date Name Value Unit Description BMI (Body Mass Index) 26.37 kg/m2 Body Mass Index [Ratio] Body Temperature 98.4 [degF] temperature E&M BP Diastolic 85 mm[Hg] blood pressure, diastolic - 8462-4 BP Systolic 134 mm[Hg] blood pressure, systolic - 8480-6 Heart Rate 65 /min pulse rate E&M - 8867-4 Height 67 [in_us] height E&M - 8302-2 O2 % BldC Oximetry 100 % oxygen saturation, oximetry Respiratory Rate 20 /min respiratory rate E&M - 9279-1 Weight Measured 168.4 [lb_av] weight E&M - 3141-9
--- OUTSIDE RECORDS SUMMARY | 2018-05-02 15:58 | XMS RPT_ITS | Clinical Summary ---
:1965 Author Organization [facility] Address [address] [place] [address] Phone Care Team Providers Name Role Phone Puneet PALOMINOTanesha Nilam Conditions or Problems Problem Problem Code Onset Status Entry Provider Comment Standard Annotate Name Date Date Description Anxiety 796340235 Active Lisa A Anxiety Disorder (SNOMED CT) [place] disorder Medications Medication Instructions Start Stop Generic Name NDC Provider Date Date SYNTHROID 100 One tablet by LEVOTHYROXINE [id number] Lisa A MCG TABS mouth daily 0 SODIUM [place] CYMBALTA 30 MG One tablet by DULOXETINE HCL 48068209789 Lisa A CPEP mouth daily 0 [place] Medications Administered No information available. Allergies, Adverse Reactions, Alerts Allergy Name Reaction Description Start Date Severity Status Provider ERYTHROMYCIN Mild Active Lisa A [place] Results Date Name Value Unit Range Flag Description Lab Report: Thyroid Stim Hormone (TSH) TSH [...] - Miscellaneous Lab Test #1 Pending order US Thyroid (Soft tissue neck) Procedures Code Procedure Name Date Entry Date 7866-3 *TSH 3024-7 *T4 free 0453-1 *MISC - Miscellaneous Lab Test #1 CPT-37325 US Thyroid (Soft tissue neck) Vital Signs No information available.
--- OUTSIDE RECORDS SUMMARY | 2018-05-02 15:58 | XMS RPT_ITS | Clinical Summary ---
:1965 Author Organization [facility] Address [address] [place] [address] Phone Care Team Providers Name Role Phone Tanesha Teixeira NP Unavailable Conditions or Problems Problem Problem Code Onset Status Entry Provider Comment Standard Annotate Name Date Date Description Thyroid [id number] Tanesha Saldivar Malignant cancer (SNOMED CT) Puneet PALOMINO tumor of thyroid gland Anxiety 592185930 Active Lisa A Anxiety Disorder (SNOMED CT) [place] disorder Medications Medication Instructions Start Stop Generic Name NDC Provider Date Date SYNTHROID 100 One tablet by LEVOTHYROXINE [id number] Tanesha Yariel MCG TABS mouth daily 0 SODIUM Shook SITE SAFETY COORDINATOR SYNTHROID 100 Take tablet one LEVOTHYROXINE 00670035381 Tanesha Yariel MCG TABS daily 0 SODIUM Puneet SITE SAFETY COORDINATOR CYMBALTA 30 MG One tablet by DULOXETINE HCL 31025728772 Lisa A CPEP mouth daily 0 [place] Medications Administered No information available. Allergies, Adverse Reactions, Alerts Allergy Name Reaction Description Start Date Severity Status Provider ERYTHROMYCIN Mild Active Lisa A [place] Results Date Name Value Unit Range Flag Description Office Visit MEDS REVIEW Done Documentation of current medications (procedure) FALLRSKASSES No Fall risk assessment ALCOHOLCOUNS no Alcoholism counseling (procedure) DIET AFTER SCHOOL COORDINATOR yes Dietary management education, guidance, and counseling (procedure) ORALTOBACUSE Never Tobacco smoking status NHIS SMOK STATUS Never smoker Tobacco use [facility] Lab Report: Thyroid Stim Hormone [...] 0453-1 *MISC - Miscellaneous Lab Test #1 CPT-29477 US Thyroid (Soft tissue neck) Vital Signs Date Name Value Unit Description BMI (Body Mass Index) 26.37 kg/m2 Body Mass Index [Ratio] Body Temperature 98.4 [degF] temperature E&M BP Diastolic 85 mm[Hg] blood pressure, diastolic - 8462-4 BP Systolic 134 mm[Hg] blood pressure, systolic - 8480-6 Heart Rate 65 /min pulse rate E&M - 8867-4 Height 67 [in_us] height E&M - 8302-2 Respiratory Rate 20 /min respiratory rate E&M - 9279-1 Weight Measured 168.4 [lb_av] weight E&M - 3141-9
--- OUTSIDE RECORDS SUMMARY | 2018-05-02 15:58 | XMS RPT_ITS | Clinical Summary ---
:1965 Author Organization [facility], [facility] Address [facility] [place] [address] Phone Care Team Providers Name Role Phone [place] IRISH MOSS GATHERER, Meaghan S Unavailable Conditions or Problems Problem Name Problem Code Onset Status Entry Provider Comment Standard Annotate Date Date Description Mammogram 78313105 Active Meaghan S Screening yearly (SNOMED CT) / Cheri mammography screening IRISH MOSS GATHERER Thyroid 181402308 Active Tanesha Saldivar Malignant cancer (SNOMED CT) / Shook IRISH MOSS GATHERER tumor of thyroid gland Anxiety 707484363 Active Lisa A Anxiety Disorder (SNOMED CT) / [place] disorder Medications Medication Instructions Start Stop Generic Name NDC Provider Date Date SYNTHROID 100 One tablet by LEVOTHYROXINE 97260395146 Tanesha J MCG TABS mouth daily 0 SODIUM Shook IRISH MOSS GATHERER SYNTHROID 100 Take tablet one LEVOTHYROXINE 93089037276 Tanesha J MCG TABS daily 0 SODIUM Shook IRISH MOSS GATHERER CYMBALTA 30 MG One tablet by DULOXETINE HCL 59820142372 Lisa A CPEP mouth daily 0 [place] Medications Administered No information available. Allergies, Adverse Reactions, Alerts Allergy Name Reaction Description Start Date Severity Status Provider ERYTHROMYCIN Mild Active Lisa A [place] Results Date Name Value Unit Range Flag Description Office Visit MEDS REVIEW Done Documentation of current medications (procedure) FALLRSKASSES No Fall risk assessment ALCOHOLCOUNS no Alcoholism counseling (procedure) DIET WEAVER NARROW FABRICS yes Dietary management education, guidance, and counseling [...] specified Plan of Care Type Date Detail Appointment 09:30 AM Meaghan Alonzo NP, [address] [facility], [address] [place], [place], [address], Referral ENT Referral Joe Gonzalez, [address] [place] [address], [place], [address] Referral ENT Referral Joe Gonzalez, [address] [place] [address], [place], [address] Pending order Mammogram, Screening, both breasts Pending order *TSH Pending order *T4 free Pending order *MISC - Miscellaneous Lab Test #1 Pending order Thyroid (Soft tissue neck) Procedures Code Procedure Name Date Entry Date 3016-3 *TSH 3024-7 *T4 free 0453-1 *MISC - Miscellaneous Lab Test #1 CPT-55505 US Thyroid (Soft tissue neck) Vital Signs [...]
--- OUTSIDE RECORDS SUMMARY | 2018-05-02 15:58 | XMS RPT_ITS | Clinical Summary ---
:1965 Author Organization [facility] Address [address] [place] [address] Phone Care Team Providers Name Role Phone Puneet GEORGETTETanesha Conditions or Problems Problem Problem Code Onset Status Entry Provider Comment Standard Annotate Name Date Date Description Anxiety 257731015 Active Lisa A Anxiety Disorder (SNOMED CT) [place] disorder Medications Medication Instructions Start Stop Generic Name NDC Provider Date Date SYNTHROID 100 One tablet by LEVOTHYROXINE [id number] Lisa A MCG TABS mouth daily 0 SODIUM [place] CYMBALTA 30 MG One tablet by DULOXETINE HCL 61533108005 Lisa A CPEP mouth daily 0 [place] [...] FREE 1.19 ng/dL 0.76-1.46 thyroxine, serum, free Plan of Care Type Date Detail Pending order *TSH Pending order *T4 free Pending order *MISC - Miscellaneous Lab Test #1 Pending order US Thyroid (Soft tissue neck) Procedures Code Procedure Name Date Entry Date 3016-3 *TSH 3024-7 *T4 free 0453-1 *MISC - Miscellaneous Lab Test #1 CPT-77303 US Thyroid (Soft tissue neck) Vital Signs No information available.
--- OUTSIDE RECORDS SUMMARY | 2018-05-02 15:58 | XMS RPT_ITS | Clinical Summary ---
:1965 Author Organization [facility], [facility] Address [facility] [place] [address] Phone Care Team Providers Name Role Phone Satartia BILINGUAL INSTRUCTOR, Meaghan S Unavailable Conditions or Problems Problem Name Problem Code Onset Status Entry Provider Comment Standard Annotate Date Date Description Mammogram 07959670 Active Meaghan S Screening yearly (SNOMED CT) / Cheri mammography screening BILINGUAL INSTRUCTOR Thyroid 292335331 Active Tanesha Saldivar Malignant cancer (SNOMED CT) / Shook BILINGUAL INSTRUCTOR tumor of thyroid gland Anxiety 541674810 Active Lisa A Anxiety Disorder (SNOMED CT) / [place] disorder Medications Medication Instructions Start Stop Generic Name NDC Provider Date Date SYNTHROID 100 One tablet by LEVOTHYROXINE 20660885027 Tanesha J MCG TABS mouth daily 0 SODIUM Shook BILINGUAL INSTRUCTOR SYNTHROID 100 Take tablet one LEVOTHYROXINE 66446949856 Tanesha J MCG TABS daily 0 SODIUM Shook BILINGUAL INSTRUCTOR CYMBALTA 30 MG One tablet by DULOXETINE HCL 45166563010 Lisa A CPEP mouth daily 0 [place] Medications Administered No information available. Allergies, Adverse Reactions, Alerts Allergy Name Reaction Description Start Date Severity Status Provider ERYTHROMYCIN Mild Active Lisa A [place] Results Date Name Value Unit Range Flag Description Office Visit MEDS REVIEW Done Documentation of current medications (procedure) FALLRSKASSES No Fall risk assessment ALCOHOLCOUNS no Alcoholism counseling (procedure) DIET TURNTABLE WORKER yes Dietary management education, guidance, and counseling (procedure) ORALTOBACUSE Never Tobacco smoking status NHIS SMOK STATUS Never smoker Tobacco smoking status [facility] Lab Report: Thyroid Stim Hormone (TSH) TSH 0.81 u[iU]/mL 0.358-3.74 thyroid stimulating hormone, serum Lab Report: T4 Free Direct T4, FREE 1.19 ng/dL 0.76-1.46 thyroxine, serum, free Lab Report: Miscellaneous Lab Procedure ZZ-GE-unk . GE use only - for LinkLogic import when terms are not otherwise specified Plan of Care Type Date Detail Referral ENT Referral Joe Lisa, [address] [place] [address], [address] Referral ENT Referral Joe Gonzalez, [address] [place] [address], [address] Pending order Mammogram, Screening, both breasts Pending order *TSH Pending order *T4 free Pending order *MISC - Miscellaneous Lab Test #1 Pending order US Thyroid (Soft tissue neck) Procedures Code Procedure Name Date Entry Date CPT-87629 Mammogram, Screening, both breasts 3016-3 *TSH 3024-7 *T4 free 0453-1 *MISC - Miscellaneous Lab Test #1 CPT-63924 US Thyroid (Soft tissue neck) Vital Signs [...]
== END ==
PROVIDERS: Family Provider Internal Medicine; PCP Internal Medicine; Referring Provider Nurse Practitioner; Visit Provider Nurse Practitioner
DX: Z85.850 Personal history of malignant neoplasm of thyroid (principal)
CPT/HCPCS: 76536

== ENCOUNTER → 2019-02-10 10:16 | Outpatient (CLI) | payer OTHER, SELFPAY ==
[2018-02-21 13:55] VITALS: BMI 27.6
[2019-02-10 10:03] VITALS: BMI 27.6
--- NOTE | 2019-02-10 10:18 | BI_ITS ---
MAMMOGRAPHY - BILATERAL SCREENING 3-D TOMOSYNTHESIS REASON FOR EXAM: Female, 53 years old. NO FM HX, BILAT SKIN TAGS MARKED PERTINENT HISTORY: No significant family history. TECHNIQUE: 2-D mammograms and 3-D Tomosynthesis of the breast (s) were performed. CAD was performed. COMPARISON: February 03, 2018. FINDINGS: The breast composition is composed of scattered fibroglandular density. Scattered benign calcifications are seen. No dense spiculated masses or suspicious microcalcifications are identified. No architectural distortion is identified. There is no skin thickening or retraction. There has been no significant change since the prior study. BI/SCREEN MAMM (CAD) W/COSMO BILAT IMPRESSION: No mammographic signs of malignancy. Routine yearly mammograms recommended. ASSESSMENT CATEGORY: BIRADS Category 1: Negative. A letter regarding these results will be sent to the patient by the facility within 30 days. FOLLOW UP RECOMMENDATION: Yearly follow up mammogram recommended. (A) Approximately 10% of breast cancers are not detected by mammography. A normal mammogram should not delay biopsy of a clinically suspicious abnormality. Electronically Signed: Anival Magallanes MD at 14:59 EST , Service support ,
== END ==
PROVIDERS: Family Provider Internal Medicine; PCP Internal Medicine; Referring Provider Nurse Practitioner Women's Health; Visit Provider Nurse Practitioner Women's Health
DX: Z12.31 Encounter for screening mammogram for malignant neoplasm of breast (principal)
CPT/HCPCS: 77063; 77067

== ENCOUNTER → 2020-02-13 15:47 | Outpatient (CLI) | payer OTHER, SELFPAY ==
[2019-03-21 14:29] VITALS: BMI 27.6
[2020-02-13 15:18] VITALS: BMI 28.6
--- NOTE | 2020-02-13 15:49 | BI_ITS ---
MAMMOGRAPHY - BILATERAL SCREENING REASON FOR EXAM: Female, 54 years old. Routine annual screening examination. PERTINENT HISTORY: Non-contributory. TECHNIQUE: Digital bilateral breast cosmo (3D mammographic acquisition) in the CC and MLO projections. 2-D mediolateral oblique (MLO) and craniocaudad (CC) views of both breasts were obtained. CAD: Full Field Digital Mammography with Computer Added Detection was performed. COMPARISON: Comparison is made with prior study dated 02/10/2019 and 02/03/2018. FINDINGS: Breast Composition: There are scattered areas of fibroglandular density. There are no dominant masses or suspicious calcifications. Stable small benign appearing axillary. No other significant abnormalities are identified. There has been no significant change since the prior study. BI/SCREEN MAMM (CAD) W/COSMO BILAT IMPRESSION: Stable bilateral screening mammogram. Yearly follow-up mammogram recommended. (A) ASSESSMENT CATEGORY: BIRADS Category 2: Benign. A letter regarding these results will be sent to the patient by the facility within 30 days. Approximately 10% of breast cancers are not detected by mammography. A normal mammogram should not delay biopsy of a clinically suspicious abnormality. [id number] Electronically Signed: Gerard Lopez, at 8:29 EST , Service support ,
[2020-02-20 15:23] LABS: HPV APTIMA, High Risk Negative (Negative)
== END ==
PROVIDERS: PCP Internal Medicine; Referring Provider Nurse Practitioner Women's Health; Visit Provider Nurse Practitioner Women's Health
DX: Z12.31 Encounter for screening mammogram for malignant neoplasm of breast (principal); Z12.4 Encounter for screening for malignant neoplasm of cervix
CPT/HCPCS: 77063; 77067; 87624; 88175; G0145

== ENCOUNTER 2021-04-28 14:28 | Outpatient (CLI) | payer OTHER, SELFPAY ==
--- NOTE | 2021-04-28 14:30 | BI_ITS ---
MAMMOGRAPHY - BILATERAL SCREENING REASON FOR EXAM: Female, 56 years old. Routine annual screening examination. PERTINENT HISTORY: Non-contributory. TECHNIQUE: Digital bilateral breast cosmo (3D mammographic acquisition) in the CC and MLO projections. 2-D mediolateral oblique (MLO) and craniocaudad (CC) views of both breasts were obtained. CAD: Full Field Digital Mammography with Computer Added Detection was performed. COMPARISON: Comparison is made with prior study dated 08/12/2020 and 02/10/2019. FINDINGS: Breast Composition: There are scattered areas of fibroglandular density. There are no dominant masses or suspicious calcifications. Stable benign-appearing bilateral axillary. No other significant abnormalities are identified. There has been no significant change since the prior study. BI/SCRN MAMM (CAD)W/COSMO BILAT IMPRESSION: Stable bilateral screening mammogram. Yearly follow-up mammogram recommended. (A) ASSESSMENT CATEGORY: BIRADS Category 2: Benign. A letter regarding these results will be sent to the patient by the facility within 30 days. Approximately 10% of breast cancers are not detected by mammography. A normal mammogram should not delay biopsy of a clinically suspicious abnormality. [id number] Electronically Signed: Gerard Lopez MD at 15:45 EDT ,
== END 2021-04-28 23:59 | disposition home or self-care (01) ==
LOC: OPBI 14:29
PROVIDERS: PCP Internal Medicine; Visit Provider Nurse Practitioner Women's Health
DX: Z12.31 Encounter for screening mammogram for malignant neoplasm of breast (principal)
CPT/HCPCS: 77063; 77067

== ENCOUNTER → 2022-05-05 | Outpatient (CLI) | payer OTHER, SELFPAY ==
--- NOTE | 2022-05-05 14:19 | BI_ITS ---
MAMMOGRAPHY - BILATERAL SCREENING REASON FOR EXAM: Female, 57 years old. Routine annual screening examination. PERTINENT HISTORY: Non-contributory. TECHNIQUE: Digital bilateral breast cosmo (3D mammographic acquisition) in the CC and MLO projections. 2-D mediolateral oblique (MLO) and craniocaudad (CC) views of both breasts were obtained. CAD: Full Field Digital Mammography with Computer Added Detection was performed. COMPARISON: Comparison is made with prior study from April 28, 2021 and February 13, 2020. FINDINGS: Breast Composition: There are scattered areas of fibroglandular density. There are no dominant masses or suspicious calcifications. Stable small benign-appearing bilateral axillary lymph nodes. No other significant abnormalities are identified. There has been no significant change since the prior study. BI/SCRN MAMM (CAD)W/COSMO BILAT IMPRESSION: Stable bilateral screening mammogram. Yearly follow-up mammogram recommended. (A) ASSESSMENT CATEGORY: BIRADS Category 2: Benign. A letter regarding these results will be sent to the patient by the facility within 30 days. Approximately 10% of breast cancers are not detected by mammography. A normal mammogram should not delay biopsy of a clinically suspicious abnormality. [id number] Electronically Signed: Gerard Lopez MD at 15:27 EDT ,
== END | disposition home or self-care (01) ==
LOC: OPBI 14:17
PROVIDERS: PCP Internal Medicine; Visit Provider Nurse Practitioner Women's Health
DX: Z12.31 Encounter for screening mammogram for malignant neoplasm of breast (principal)
CPT/HCPCS: 77063; 77067

== ENCOUNTER → 2023-06-01 | Outpatient (CLI) | payer OTHER, SELFPAY ==
--- NOTE | 2023-06-01 14:52 | BI_ITS ---
MAMMOGRAPHY - BILATERAL SCREENING REASON FOR EXAM: Female, 58 years old. Routine annual screening examination. PERTINENT HISTORY: Non-contributory. TECHNIQUE: Digital bilateral breast cosmo (3D mammographic acquisition) in the CC and MLO projections. 2-D mediolateral oblique (MLO) and craniocaudad (CC) views of both breasts were obtained. CAD: Full Field Digital Mammography with Computer Added Detection was performed. COMPARISON: Comparison is made with prior study dated May 05, 2022 and April 28, 2021. FINDINGS: Breast Composition: There are scattered areas of fibroglandular density. There are no dominant masses or suspicious calcifications. No other significant abnormalities are identified. There has been no significant change since the prior study. BI/SCRN MAMM (CAD)W/COSMO BILAT IMPRESSION: Stable bilateral screening mammogram. Yearly follow-up mammogram recommended. (A) ASSESSMENT CATEGORY: BIRADS Category 1: Negative. A letter regarding these results will be sent to the patient by the facility within 30 days. Approximately 10% of breast cancers are not detected by mammography. A normal mammogram should not delay biopsy of a clinically suspicious abnormality. [id number] Electronically Signed: Gerard Lopez MD at 15:40 EDT ,
== END | disposition home or self-care (01) ==
LOC: OPBI 14:52
PROVIDERS: PCP Internal Medicine; Referring Provider Nurse Practitioner Women's Health; Visit Provider Nurse Practitioner Women's Health
DX: Z12.31 Encounter for screening mammogram for malignant neoplasm of breast (principal)
CPT/HCPCS: 77063; 77067

== ENCOUNTER → 2024-10-31 | Outpatient (CLI) | payer OTHER, SELFPAY ==
--- NOTE | 2024-10-31 12:02 | BI_ITS ---
EXAM: SCRN MAMM (CAD)W/COSMO BILAT DATE: 10/31/2024 CLINICAL HISTORY: F, Age 59 y/o , SCREENING No family history. TECHNIQUE: Procedure Code: [id number] Modality: MG Procedure: SCRN MAMM (CAD)W/COSMO BILAT COMPARISON: Prior exam(s) dated June 01, 2023.. FINDINGS: TISSUE DENSITY: There are scattered areas of fibroglandular density. Bilateral Breast Mammographic Findings: No significant masses, calcifications or other abnormalities are identified. Stable fat containing bilateral axillary lymph nodes. No suspicious masses, areas of developing architectural distortion, or suspicious calcifications. There has been no significant interval change. BI/SCRN MAMM (CAD)W/COSMO BILAT IMPRESSION: Stable bilateral screening mammogram. OVERALL FINAL ASSESSMENT BI-RADS 2: BENIGN RECOMMENDATION: Routine annual follow-up in 1 Year Additional Recommendation none A letter with findings and recommendations will be mailed to the patient. Reading Location: [place] [id number]
== END | disposition home or self-care (01) ==
LOC: OPBI 11:55
PROVIDERS: PCP Internal Medicine; Referring Provider Clinical Nurse Specialist; Visit Provider Clinical Nurse Specialist
DX: Z12.31 Encounter for screening mammogram for malignant neoplasm of breast (principal)
CPT/HCPCS: 77063; 77067